=== PATIENT | female | born 1950 | race Caucasian/White ===

== ENCOUNTER 2017-12-21 10:06 | Day surgery (SDC) | payer MEDICARE ==
[~2017-12-21] VITALS: Ht 154.9 cm; Wt 64.9 kg
[~2017-12-21 10:06] MED LIST: FORFIVO XL450 MG; HYDR1TAB94 PO; LISI20; LIVALO2 MG PO; METF850 PO; Metformin HCl850 MG PO; PIOG30 PO
== END 2017-12-21 22:59 | disposition home or self-care (01) ==
LOC: ORSCMMR 10:06 → ORD 11:00 → ORSCMMR 22:59
PROVIDERS: Internal Medicine Gastroenterology
PROC: 0DBN8ZX Excision of Sigmoid Colon, Via Natural or Artificial Opening Endoscopic, Diagnostic (ICD-10-PCS; principal; 2017-12-21 11:00)
PROC: 0DBM8ZX Excision of Descending Colon, Via Natural or Artificial Opening Endoscopic, Diagnostic (ICD-10-PCS; principal; 2017-12-21 11:00)
DX: Z12.11 Encounter for screening for malignant neoplasm of colon (principal); K63.5 Polyp of colon; K64.4 Residual hemorrhoidal skin tags; E11.9 Type 2 diabetes mellitus without complications; I10 Essential (primary) hypertension; E78.00 Pure hypercholesterolemia, unspecified; Z79.84 Long term (current) use of oral hypoglycemic drugs; Z79.899 Other long term (current) drug therapy; F32.9 Major depressive disorder, single episode, unspecified; F17.210 Nicotine dependence, cigarettes, uncomplicated
CPT/HCPCS: 82947; 88305; J7120

== ENCOUNTER 2019-04-08 14:50 | Day surgery (SDC) | payer MEDICARE ==
[2019-04-11 14:56] LABS: Performing Lab SYMBIODX; Test Name TISSUE BLOCK
[2019-04-20 15:44] LABS: Result SEE PATHOTH RESULTS
== END 2019-04-08 22:45 | disposition home or self-care (01) ==
LOC: US 14:50
PROVIDERS: Physician Assistant
DX: C83.01 Small cell B-cell lymphoma, lymph nodes of head, face, and neck (principal); I10 Essential (primary) hypertension; J45.909 Unspecified asthma, uncomplicated; E11.9 Type 2 diabetes mellitus without complications; E55.9 Vitamin D deficiency, unspecified; E78.2 Mixed hyperlipidemia; F32.9 Major depressive disorder, single episode, unspecified; F17.210 Nicotine dependence, cigarettes, uncomplicated; Z90.710 Acquired absence of both cervix and uterus; Z90.721 Acquired absence of ovaries, unilateral; Z79.84 Long term (current) use of oral hypoglycemic drugs; Z79.899 Other long term (current) drug therapy; Z88.8 Allergy status to other drugs, medicaments and biological substances; Z91.030 Bee allergy status
CPT/HCPCS: 38505; 76942; 88271; 88275; 88305; 88341; 88342

== ENCOUNTER → 2020-02-08 | Outpatient (CLI) | payer MEDICARE | END | disposition home or self-care (01) | LOC: LAB EV 13:03 → LAB SHORT 13:03 | DX: L02.92 Furuncle, unspecified (principal) | CPT/HCPCS: 87070; 87075; 87077; 87147; 87186; 87205 ==

== ENCOUNTER → 2021-09-17 | Outpatient (CLI) | payer OTHER ==
[2021-09-17 17:31] LABS: Hemoglobin 8.8 g/dL (11.5-16.0); Mean Corpuscular HGB 29.9 pg (26.0-34.0); Mean Corpuscular HGB Conc 33.8 g/dL (31.5-36.5); Mean Corpuscular Volume 88 fL (80-100); Mean Platelet Volume 8.1 fL (9.1-12.4); Platelet Count 727 K/mm3 (150-400); RDW Coefficient Variation 13.7 % (11.7-14.2); RDW Standard Deviation 44.3 fL (35.1-46.3); Red Blood Cell Count 2.94 M/mm3 (3.80-5.20); White Blood Cell Count 3.06 K/mm3 (4.00-11.30)
[2021-09-17 17:40] LABS: Albumin, Blood 2.7 g/dL (3.4-5.0); Albumin/Globulin Ratio 0.6 (0.8-1.8); Bilirubin, Total 0.4 mg/dL (0.1-1.0); Calcium, Blood 9.3 mg/dL (8.5-10.1); Creatinine, Blood 1.2 mg/dL (0.40-1.00); Globulin, Blood 4.2 g/dL (2.2-4.0); Total Protein, Blood 6.9 g/dL (6.4-8.2)
[2021-09-17 18:32] LABS: BAND PERCENT MAN 6 % (0-8); BASOPHILS PERCENT MAN 0 % (0-2); EOSINOPHILS ABSOLUTE MAN 0.12 K/mm3 (0.00-0.68); EOSINOPHILS PERCENT MAN 4 % (0-6); LYMPHOCYTES ABSOLUTE MAN 0.33 K/mm3 (0.84-5.20); LYMPHOCYTES PERCENT MAN 11 % (21-46); METAMYELOCYTE ABSOLUTE MAN 0.15 K/mm3 (0.00-0.00); METAMYELOCYTE PERCENT MAN 5 % (0-0); MONOCYTES ABSOLUTE MAN 0.36 K/mm3 (0.16-1.47); MONOCYTES PERCENT MAN 12 % (4-13); NEUTROPHILS ABSOLUTE MAN 2.08 K/mm3 (1.96-9.15); SEG NEUTROPHILS PERCENT MAN 62 % (41-73); TOTAL CELLS COUNTED 100
== END | disposition home or self-care (01) ==
LOC: LAB 17:15 → LAB SHORT 17:15
PROVIDERS: Physician Assistant
DX: R11.2 Nausea with vomiting, unspecified (principal); R68.89 Other general symptoms and signs; R19.7 Diarrhea, unspecified
CPT/HCPCS: 80053; 85025

== ENCOUNTER 2021-10-12 21:14 | Inpatient (IN) | payer OTHER ==
[~2021-10-12] VITALS: Ht 162.6 cm; Wt 58.3 kg
[2021-10-12] MEDS ORDERED: EZETIMIBE10 M6 PO (21:58)
[2021-10-12] MEDS ORDERED: BUPROPION HCL200 M1 PO (21:58)
[2021-10-12] MEDS ORDERED: Hair, Skin & N1 EACH PO (22:00)
[2021-10-12] MEDS ORDERED: VITAMIN D5000 UNIT PO (22:00)
[2021-10-12 22:12] LABS: Influenza A, PCR NEGATIVE (NEGATIVE); Influenza B, PCR NEGATIVE (NEGATIVE); Resp Syncytial Virus, PCR NEGATIVE (NEGATIVE); SARS-Cov-2 (COVID-19) PCR, MMC NEGATIVE (NEGATIVE)
[2021-10-12 22:16] LABS: Hematocrit 27.7 % (33.0-51.0); Hemoglobin 9.2 g/dL (11.5-16.0); Mean Corpuscular HGB 29.8 pg (26.0-34.0); Mean Corpuscular HGB Conc 33.2 g/dL (31.5-36.5); Mean Corpuscular Volume 90 fL (80-100); Mean Platelet Volume 8.3 fL (9.1-12.4); Platelet Count 584 K/mm3 (150-400); RDW Coefficient Variation 15.4 % (11.7-14.2); RDW Standard Deviation 50.6 fL (35.1-46.3); Red Blood Cell Count 3.09 M/mm3 (3.80-5.20); White Blood Cell Count 3.36 K/mm3 (4.00-11.30)
[2021-10-12 22:39] LABS: Albumin, Blood 2.7 g/dL (3.4-5.0); Albumin/Globulin Ratio 0.7 (0.8-1.8); Bilirubin, Total 0.5 mg/dL (0.1-1.0); Bun/Creatinine Ratio 22.2 (12.0-20.0); Calcium, Blood 9.2 mg/dL (8.5-10.1); Creatinine, Blood 0.77 mg/dL (0.40-1.00); Globulin, Blood 3.8 g/dL (2.2-4.0); Potassium, Blood 4.2 mmol/L (3.5-5.5); Total Protein, Blood 6.5 g/dL (6.4-8.2)
[2021-10-12 22:54] LABS: BAND PERCENT MAN 16 % (0-8); BASOPHILS PERCENT MAN 0 % (0-2); EOSINOPHILS ABSOLUTE MAN 0.06 K/mm3 (0.00-0.68); EOSINOPHILS PERCENT MAN 2 % (0-6); LYMPHOCYTES % ATYPICAL MANUAL 2 % (0-0); LYMPHOCYTES ABSOLUTE MAN 0.26 K/mm3 (0.84-5.20); LYMPHOCYTES PERCENT MAN 6 % (21-46); METAMYELOCYTE ABSOLUTE MAN 0.06 K/mm3 (0.00-0.00); METAMYELOCYTE PERCENT MAN 2 % (0-0); MONOCYTES ABSOLUTE MAN 0.26 K/mm3 (0.16-1.47); MONOCYTES PERCENT MAN 8 % (4-13); MYELOCYTE ABSOLUTE MAN 0.03 K/mm3 (0.00-0.00); MYELOCYTE PERCENT MAN 1 % (0-0); NEUTROPHILS ABSOLUTE MAN 2.65 K/mm3 (1.96-9.15); SEG NEUTROPHILS PERCENT MAN 63 % (41-73); TOTAL CELLS COUNTED 100
--- NOTE | 2021-10-13 02:30 | NUR ---
PT HERE VIA WHEEL CHAIR FROM ER. PT AMBULATORY FROM WHEEL CHAIR TO BED. PT REPORTS PRODUCTIVE COUGH, FROTHY OCCASIONAL GREEN SPUTUM. PT REPORTS CHEST DISCOMFORT 2/10 THAT "IS TOLERABLE," SHE RELAYED HER CHEST DISCOMFORT WAS 5/10 IN ER. PT REPORTS OCCASIONAL NAUSEA. PT REPORTS SOB WITH EXERTION. SHE REPORTS SHE USUALLY WALKS 45 MINUTES A DAY, HOWEVER RECENTLY SHE HASN'T BEEN ABLE TO. LUNG SOUNDS WITH I/E WHEEZE, RHONCHI THROUGHOUT. PT DENIES ANY OTHER COMPLAINTS OF PAIN OR DISCOMFORT. CALL LIGHT WITHIN REACH. FLUIDS AT BEDSIDE. L AC IV SITE FLUSHED. DURING ASSESSMENT RT IN ROOM FOR PLACEMENT OF CONTINUOUS BIOX, SATS WNL ON RA. BED IN LOW POSITION. PT REPORTS SHE WILL CALL FOR ASSISTANCE OUT OF BED.
[2021-10-13] MEDS ORDERED: ACET500 PO (02:49)
[2021-10-13 05:54] LABS: Hematocrit 23.4 % (33.0-51.0); Mean Corpuscular HGB 30.1 pg (26.0-34.0); Mean Corpuscular HGB Conc 34.2 g/dL (31.5-36.5); Mean Corpuscular Volume 88 fL (80-100); Mean Platelet Volume 8.8 fL (9.1-12.4); Platelet Count 480 K/mm3 (150-400); RDW Coefficient Variation 15.5 % (11.7-14.2); RDW Standard Deviation 50.1 fL (35.1-46.3); Red Blood Cell Count 2.66 M/mm3 (3.80-5.20)
[2021-10-13 06:07] LABS: Albumin, Blood 2.2 g/dL (3.4-5.0); Albumin/Globulin Ratio 0.7 (0.8-1.8); Bilirubin, Total 0.4 mg/dL (0.1-1.0); Bun/Creatinine Ratio 19.5 (12.0-20.0); Calcium, Blood 8.7 mg/dL (8.5-10.1); Creatinine, Blood 0.62 mg/dL (0.40-1.00); Globulin, Blood 3.3 g/dL (2.2-4.0); Potassium, Blood 3.9 mmol/L (3.5-5.5); Total Protein, Blood 5.5 g/dL (6.4-8.2)
[2021-10-13 06:37] LABS: BAND PERCENT MAN 3 % (0-8); BASOPHILS ABSOLUTE MAN 0.02 K/mm3 (0.00-0.23); BASOPHILS PERCENT MAN 1 % (0-2); EOSINOPHILS ABSOLUTE MAN 0.11 K/mm3 (0.00-0.68); EOSINOPHILS PERCENT MAN 4 % (0-6); LYMPHOCYTES ABSOLUTE MAN 1.04 K/mm3 (0.84-5.20); LYMPHOCYTES PERCENT MAN 35 % (21-46); MONOCYTES PERCENT MAN 7 % (4-13); MYELOCYTE ABSOLUTE MAN 0.08 K/mm3 (0.00-0.00); MYELOCYTE PERCENT MAN 3 % (0-0); NEUTROPHILS ABSOLUTE MAN 1.51 K/mm3 (1.96-9.15); SEG NEUTROPHILS PERCENT MAN 48 % (41-73); TOTAL CELLS COUNTED 75
[2021-10-13 06:38] LABS: White Blood Cell Count 2.98 K/mm3 (4.00-11.30)
--- NOTE | 2021-10-13 06:42 | NUR ---
SHIFT SUMMARY - NO ACUTE CHANGES SINCE ADMIT THIS AM. PT HAS A PRODUCTIVE COUGH - PT REPORTS FROTHY, OCCASIONALLY GREEN SPUTUM. CONTINUOUS BIOX ON - SATS WITHIN NORMAL LIMITS, EXCEPT WHEN PT TALKS FOR A CONSISTENT AMOUNT OF TIME (SHE IS VERY VOCAL) - PT RECOVERS WITHIN 30 SECONDS WITH DEEP BREATHING. FLUIDS AT BEDSIDE. CALL LIGHT WITHIN REACH. BED IN LOW POSITION. PT DENIES ANY REQUESTS THIS AM. WILL CONTINUE TO MONITOR UNTIL AM SHIFT CHANGE.
--- NOTE | 2021-10-13 10:17 | NUR ---
Spiritual Care Visit - pt. request Pt. is in bed and welcomes my visit. Granddaughter is present. Pt. is pleasant, and has no real evidence of spiritual distress. Pt. is a woman of michael. Develop rapport and pray with Pt. Pt. verbalizes gratitude for the spiritual care visit.
--- NOTE | 2021-10-13 17:30 | NUR ---
DAY SHIFT SUMMARY 71 YR OLD FEMALE PT WITH PNEUMONIA, A/O X4 INDEPENDENT IN ROOM. LUNGS WITH WHEEZES THROUGHOUT. PT ON RA , ABLE TO TAKE MEDS WHOLE. CALL LIGHT WITHIN REACH AND ABLE TO CALL APPROPRIATELY. FAMILY AT BEDSIDE THROUGHOUT SHIFT.
[2021-10-14 05:05] LABS: Hematocrit 24.7 % (33.0-51.0); Mean Corpuscular HGB 29.9 pg (26.0-34.0); Mean Corpuscular HGB Conc 32.4 g/dL (31.5-36.5); Mean Corpuscular Volume 92 fL (80-100); Mean Platelet Volume 8.3 fL (9.1-12.4); Platelet Count 549 K/mm3 (150-400); RDW Coefficient Variation 15.7 % (11.7-14.2); RDW Standard Deviation 53.1 fL (35.1-46.3); Red Blood Cell Count 2.68 M/mm3 (3.80-5.20); White Blood Cell Count 2.36 K/mm3 (4.00-11.30)
--- NOTE | 2021-10-14 05:32 | NUR ---
PATIENT WITH VSS ON RA OVERNIGHT. CONTINUOUS PULSE OX IN PLACE. PATIENT UP INDEPENDENTLY IN THE ROOM. NO C/O PAIN OVERNIGHT. PATIENT SLEPT MOST OF THE SHIFT. NO ACUTE EVENTS OVERNIGHT.
[2021-10-14 05:37] LABS: BAND PERCENT MAN 13 % (0-8); BASOPHILS PERCENT MAN 0 % (0-2); EOSINOPHILS ABSOLUTE MAN 0.21 K/mm3 (0.00-0.68); EOSINOPHILS PERCENT MAN 9 % (0-6); LYMPHOCYTES ABSOLUTE MAN 0.49 K/mm3 (0.84-5.20); LYMPHOCYTES PERCENT MAN 21 % (21-46); MONOCYTES ABSOLUTE MAN 0.16 K/mm3 (0.16-1.47); MONOCYTES PERCENT MAN 7 % (4-13); MYELOCYTE ABSOLUTE MAN 0.02 K/mm3 (0.00-0.00); MYELOCYTE PERCENT MAN 1 % (0-0); NEUTROPHILS ABSOLUTE MAN 1.46 K/mm3 (1.96-9.15); SEG NEUTROPHILS PERCENT MAN 49 % (41-73); TOTAL CELLS COUNTED 100
[2021-10-14 05:42] LABS: Bun/Creatinine Ratio 13.1 (12.0-20.0); Calcium, Blood 9.3 mg/dL (8.5-10.1); Creatinine, Blood 0.61 mg/dL (0.40-1.00); Potassium, Blood 3.7 mmol/L (3.5-5.5)
--- NOTE | 2021-10-14 07:12 | NUR ---
ASSUMED CARE OF PT- BEDSIDE REPORT COMPLETED WITH NIGHT RN. PER REPORT THERE WAS DIFFICULTY STARTING THE PT IV LAST NIGHT, MULTIPLE ATTEMPTS. SHE NOW HAS AN IV IN THE LEFT WRIST, PLACED VIA ULTRASOUND. NOTABLE IRREGULAR HEART BEAT AND MURMUR ON MORNING ASSESSMENT. PT ALERT ORIENTED AND INDEPENDENT IN THE ROOM, ON ROOM AIR AND CONT BIOX. PT STATES SHE IS READY TO GO HOME TODAY, SHE FEELS MUCH BETTER THAN SHE DID, LUNG SOUNDS CLEAR ON AUSCULTATION THIS MORNING, DENIES SOB.
[2021-10-14] MEDS ORDERED: CEFD300 PO (13:38)
--- NOTE | 2021-10-14 16:03 | NUR ---
DISCHARGE NOTE- PT WAS GIVEN VERBAL ANE JOSIAH DISCHARGE INSTRUCTIONS AND ACKNOWLEDGED UNDERSTANDING OF THEM. IV DC'D PRIOR TO DISCHARGE. PT ESCORTED OUT VIA WC BY THE NEUROSCIENTIST NO S&S OF DISTRESS NOTED AT THE TIME OF DISCHARGE.
--- NOTE | 2021-10-14 17:15 | NUR ---
Prior to discharge visited Pt. Pt. was dressed and waiting for discharge papers. Granddaughter present. Re-established rapport and Prayed for Pt. Pt. and granddaughter verbalized gratitude for the spiritual cre visit.
== END 2021-10-14 14:33 | disposition home or self-care (01) | DRG 871 ==
LOC: ER 21:14 → MEDS 10-13 01:37
PROVIDERS: Family Medicine; Internal Medicine; Student in an Organized Health Care Education/Training Program; ADMIT Internal Medicine
DX: A41.9 Sepsis, unspecified organism (principal); J18.9 Pneumonia, unspecified organism; E87.1 Hypo-osmolality and hyponatremia; J45.901 Unspecified asthma with (acute) exacerbation; C85.90 Non-Hodgkin lymphoma, unspecified, unspecified site; D84.9 Immunodeficiency, unspecified; K52.1 Toxic gastroenteritis and colitis; D61.818 Other pancytopenia; Z20.822 Contact with and (suspected) exposure to COVID-19; E11.9 Type 2 diabetes mellitus without complications; T36.8X5A Adverse effect of other systemic antibiotics, initial encounter; Z87.891 Personal history of nicotine dependence; Z90.710 Acquired absence of both cervix and uterus; Z98.890 Other specified postprocedural states; Z92.21 Personal history of antineoplastic chemotherapy; Z79.84 Long term (current) use of oral hypoglycemic drugs; Z79.899 Other long term (current) drug therapy
CPT/HCPCS: 0241U; 36415; 71045; 80048; 80053; 82947; 83605; 85025; 87040; 94760; 94762; 96374; 96375; 99285-25; A9270; J0456; J0696; J1650; J7030; J7050

== ENCOUNTER 2022-01-21 13:59 | Inpatient (IN) | payer OTHER ==
[~2022-01-21] VITALS: Ht 152.4 cm; Wt 56.7 kg
[~2022-01-21 13:59] MED LIST changes: +ACET500 PO; +BUPROPION HCL200 M1 PO; +CEFD300 PO; +EZETIMIBE10 M6 PO; +Hair, Skin & N1 EACH PO; +VITAMIN D5000 UNIT PO
[2022-01-21 14:50] LABS: Hematocrit 23.1 % (33.0-51.0); Hemoglobin 7.9 g/dL (11.5-16.0); Mean Corpuscular HGB Conc 34.2 g/dL (31.5-36.5); Mean Corpuscular Volume 88 fL (80-100); Mean Platelet Volume 9.1 fL (9.1-12.4); Platelet Count 468 K/mm3 (150-400); RDW Coefficient Variation 13.2 % (11.7-14.2); Red Blood Cell Count 2.63 M/mm3 (3.80-5.20); White Blood Cell Count 3.23 K/mm3 (4.00-11.30)
[2022-01-21 15:03] LABS: Albumin, Blood 1.7 g/dL (3.4-5.0); Albumin/Globulin Ratio 0.4 (0.8-1.8); Bilirubin, Total 0.6 mg/dL (0.1-1.0); Bun/Creatinine Ratio 31.1 (12.0-20.0); Calcium, Blood 8.7 mg/dL (8.5-10.1); Creatinine, Blood 2.12 mg/dL (0.40-1.00); Globulin, Blood 3.8 g/dL (2.2-4.0); Potassium, Blood 3.6 mmol/L (3.5-5.5); Total Protein, Blood 5.5 g/dL (6.4-8.2)
[2022-01-21 15:31] LABS: Influenza A, PCR NEGATIVE (NEGATIVE); Influenza B, PCR NEGATIVE (NEGATIVE); Resp Syncytial Virus, PCR NEGATIVE (NEGATIVE); SARS-Cov-2 (COVID-19) PCR, MMC NEGATIVE (NEGATIVE)
[2022-01-21 15:31] LABS: BAND PERCENT MAN 11 % (0-8); BASOPHILS PERCENT MAN 0 % (0-2); EOSINOPHILS ABSOLUTE MAN 0.06 K/mm3 (0.00-0.68); EOSINOPHILS PERCENT MAN 2 % (0-6); LYMPHOCYTES % ATYPICAL MANUAL 1 % (0-0); LYMPHOCYTES ABSOLUTE MAN 0.35 K/mm3 (0.84-5.20); LYMPHOCYTES PERCENT MAN 10 % (21-46); METAMYELOCYTE ABSOLUTE MAN 0.03 K/mm3 (0.00-0.00); METAMYELOCYTE PERCENT MAN 1 % (0-0); MONOCYTES ABSOLUTE MAN 0.25 K/mm3 (0.16-1.47); MONOCYTES PERCENT MAN 8 % (4-13); NEUTROPHILS ABSOLUTE MAN 2.51 K/mm3 (1.96-9.15); SEG NEUTROPHILS PERCENT MAN 67 % (41-73); TOTAL CELLS COUNTED 100
[2022-01-21 18:55] LABS: Source, Urine Foley catheter
[2022-01-21 19:05] LABS: Appearance, Urine Clear (Clear); Bilirubin, Urine Neg (Neg); Blood, Urine 1+ (Neg); Color, Urine Yellow (P-Yellow); Glucose Qualitative, Urine Neg (Neg); Ketones, Urine Neg (Neg); Leukocyte Esterase, Urine Neg (Neg); Nitrite, Urine Neg (Neg); Protein, Urine 1+ (Neg); Urobilinogen, Urine NORM (Normal)
[2022-01-21 19:11] LABS: Hyaline Casts 0-2 /lpf (0-2); Red Blood Cells, Urine 0-2 /hpf (0-2); White Blood Cells, Urine 0-2 /hpf (0-5)
[2022-01-21 19:12] LABS: Bacteria Few /hpf; Squamous Epithelial Cells Not Seen /hpf (Few); Transitional Epithelial Cells Rare /hpf (0-Rare)
--- NOTE | 2022-01-21 20:35 | NUR ---
ASSUMED CARE PATIENT ARRIVED TO ICU 2 FROM ER ALERT AND RESPONDING APPROPRIATELY. PATIENT'S DAUGHTER, LINH, AT BEDSIDE. VANCO INF TO RT WRIST 22G PIV. 20G IV TO LT FOOT SALINE LOCKED. COOK PATENT AND DRAINING DARK YELLOW CLOUDY URINE TO GRAVITY. SPO2 MID 80'S ON ROOM AIR. PLACED ON 5LPM VIA NC WITH SPO2 LOW OT MID 90'S. REPORT COMPLETED WITH RAI HEWITT.
[2022-01-21] MEDS ORDERED: BENADRYL25 MG PO (21:19)
[2022-01-21] MEDS ORDERED: ALBU90OI INH (21:19)
[2022-01-21] MEDS ORDERED: IPRATROPIUM BRO30 ML (21:21)
[2022-01-21] MEDS ORDERED: ONDA4 PO (21:22)
--- NOTE | 2022-01-21 23:30 | NUR ---
BP AND OXYGEN BP SLOWLY DECREASING TO MAPS NOW IN THE 50'S. CALL MADE TO DR. BHATTI AND 500ML NS BOLUS X 1 ORDERED. OXYGEN MAINTAINING IN HIGH 90'S ON 5LPM VIA NC. OXYGEN TITRATED DOWN TO 3LPM AND SPO2 NOW AT 96%.
[2022-01-22 03:40] LABS: Hematocrit 21.3 % (33.0-51.0); Hemoglobin 7.3 g/dL (11.5-16.0); Mean Corpuscular HGB 30.5 pg (26.0-34.0); Mean Corpuscular HGB Conc 34.3 g/dL (31.5-36.5); Mean Corpuscular Volume 89 fL (80-100); Mean Platelet Volume 8.8 fL (9.1-12.4); Platelet Count 382 K/mm3 (150-400); RDW Coefficient Variation 13.2 % (11.7-14.2); RDW Standard Deviation 43.3 fL (35.1-46.3); Red Blood Cell Count 2.39 M/mm3 (3.80-5.20)
[2022-01-22 03:58] LABS: Albumin, Blood 1.9 g/dL (3.4-5.0); Albumin/Globulin Ratio 0.5 (0.8-1.8); Bilirubin, Total 0.7 mg/dL (0.1-1.0); Bun/Creatinine Ratio 39.5 (12.0-20.0); Calcium, Blood 8.5 mg/dL (8.5-10.1); Creatinine, Blood 1.52 mg/dL (0.40-1.00); Globulin, Blood 3.5 g/dL (2.2-4.0); Magnesium, Blood 1.5 mg/dL (1.6-2.4); Potassium, Blood 3.8 mmol/L (3.5-5.5); Total Protein, Blood 5.4 g/dL (6.4-8.2)
[2022-01-22 04:12] LABS: BAND PERCENT MAN 12 % (0-8); BASOPHILS PERCENT MAN 0 % (0-2); EOSINOPHILS ABSOLUTE MAN 0.02 K/mm3 (0.00-0.68); EOSINOPHILS PERCENT MAN 1 % (0-6); LYMPHOCYTES ABSOLUTE MAN 0.04 K/mm3 (0.84-5.20); LYMPHOCYTES PERCENT MAN 2 % (21-46); METAMYELOCYTE ABSOLUTE MAN 0.06 K/mm3 (0.00-0.00); METAMYELOCYTE PERCENT MAN 3 % (0-0); MONOCYTES ABSOLUTE MAN 0.16 K/mm3 (0.16-1.47); MONOCYTES PERCENT MAN 7 % (4-13); MYELOCYTE ABSOLUTE MAN 0.04 K/mm3 (0.00-0.00); MYELOCYTE PERCENT MAN 2 % (0-0); NEUTROPHILS ABSOLUTE MAN 1.95 K/mm3 (1.96-9.15); SEG NEUTROPHILS PERCENT MAN 73 % (41-73); TOTAL CELLS COUNTED 100
[2022-01-22 10:48] LABS: Vancomycin, Random 14.9 ug/mL
--- NOTE | 2022-01-22 12:03 | NUR ---
REASSESSMENT PT HAS BEEN RESTING IN BED THROUGHOUT THE MORNING. SHE WAS SLEEPING DEEPLY THIS MORNING AND DIDN'T EVEN WAKE WHEN HER BLOOD SUGAR WAS CHECKED, BUT ONCE SHE WOKE UP SHE HAS BEEN ALERT AND ORIENTED. OXYGEN TURNED DOWN TO 1L/NC THIS MORNING AND SPO2 HAS BEEN 92-84%. SR WITH FIRST DEGREE AVB. BP IMPROVED SICNE ALBUMIN CURRENTLY MAP 68. COOK DRAINING DARK YELLOW URINE. PT'S GARY WAS AT THE BEDSIDE FOR A LITTLE BIT AND WAS UPDATED. DR. BAILEY NOTIFIED OF PT'S AM BLOOD SGUAR AND ORDER RECEIVED FOR SLIDING SCALE.
--- NOTE | 2022-01-22 17:20 | NUR ---
SHIFT SUMMARY PT HAS BEEN RESTING IN BED THROUGHOUT THE DAY. SHE SPENT THE MAJORITY OF THE AFTERNOON SLEEPING. MEDICATED ONCE FOR A HEADACHE. REMAINS ALERT AND ORIENTED. LUNGS HAVE EXPIRATORY WHEEZE. OXYGEN TURNED DOWN TO 1L/NC THIS MORNING, BUT HAD TO BE TITRATED BACK UP TO 2L/NC THIS EVENING WHILE PT IS VISITING WITH HER DAUGHTER. SR, BP STABLE. URINE IN COOK BAG LIGHTENED THROUGHOUT THE SHIFT, YELLOW NOW WITH SOME SEDIMENT. CONTINUING TO MONITOR.
--- NOTE | 2022-01-22 19:00 | NUR ---
ASSUMED CARE OF PATIENT AT THIS TIME. PATIENT RESTING COMFORTABLY IN BED. ALLERGIES, LINES, AND DRIPS REVIEWED WITH PREVIOUS RN.
[2022-01-23 03:28] LABS: Hematocrit 22.1 % (33.0-51.0); Hemoglobin 7.3 g/dL (11.5-16.0); Mean Corpuscular HGB 29.3 pg (26.0-34.0); Mean Corpuscular Volume 89 fL (80-100); Mean Platelet Volume 9.6 fL (9.1-12.4); Platelet Count 352 K/mm3 (150-400); RDW Coefficient Variation 13.5 % (11.7-14.2); RDW Standard Deviation 44.1 fL (35.1-46.3); Red Blood Cell Count 2.49 M/mm3 (3.80-5.20); White Blood Cell Count 3.62 K/mm3 (4.00-11.30)
[2022-01-23 03:50] LABS: Alanine Aminotransfer (ALT/SGP 48 U/L (12-78); Albumin, Blood 2.1 g/dL (3.4-5.0); Albumin/Globulin Ratio 0.6 (0.8-1.8); Alk Phos 243 U/L (50-136); Anion Gap 11 mmol/L (6-16); Aspartate Aminotrans (AST/SGOT 40 U/L (12-37); Bilirubin, Total 0.6 mg/dL (0.1-1.0); Blood Urea Nitrogen 53 mg/dL (8-24); Bun/Creatinine Ratio 48.6 (12.0-20.0); CO2, Blood 18 mmol/L (21-32); Calcium, Blood 8.6 mg/dL (8.5-10.1); Chloride, Blood 97 mmol/L (98-108); Creatinine, Blood 1.09 mg/dL (0.40-1.00); Globulin, Blood 3.4 g/dL (2.2-4.0); Glomerular Filtration Rate 54 (60-); Glucose, Blood 257 mg/dL (70-99); Potassium, Blood 3.8 mmol/L (3.5-5.5); Sodium, Blood 126 mmol/L (136-145); Total Protein, Blood 5.5 g/dL (6.4-8.2); Vancomycin, Random 19.5 ug/mL
[2022-01-23 05:25] LABS: BAND PERCENT MAN 15 % (0-8); BASOPHILS PERCENT MAN 0 % (0-2); EOSINOPHILS PERCENT MAN 0 % (0-6); LYMPHOCYTES ABSOLUTE MAN 0.18 K/mm3 (0.84-5.20); LYMPHOCYTES PERCENT MAN 5 % (21-46); METAMYELOCYTE ABSOLUTE MAN 0.07 K/mm3 (0.00-0.00); METAMYELOCYTE PERCENT MAN 2 % (0-0); MONOCYTES ABSOLUTE MAN 0.14 K/mm3 (0.16-1.47); MONOCYTES PERCENT MAN 4 % (4-13); NEUTROPHILS ABSOLUTE MAN 3.22 K/mm3 (1.96-9.15); SEG NEUTROPHILS PERCENT MAN 74 % (41-73); TOTAL CELLS COUNTED 100
--- NOTE | 2022-01-23 05:54 | NUR ---
ASSUMED CARE OF PATIENT AT APPROX 0415. TRANSFERED PT FROM WHEELCHAIR TO BED. COOK IN PLACE DRAINING TO GRAVITY. VITAL SIGNS TAKEN. NO COMPLAINTS OF PAIN AT THIS TIME. LUNGS WHEEZY, ON 2L NC. CALL LIGHT IN REACH. SINCE ARRIVAL PT HAS BEEN RESTING COMFORTABLY. NO ACUTE CHANGES. WILL CONTINUE TO MONITOR AND REPORT TO ONCOMING RN.
--- NOTE | 2022-01-23 07:47 | NUR ---
RN NOTE RECEIVED CALL FROM LAB REGARDING BLOOD CULTURE RESULT. DR BHAT CALLED AND NOTIFIED. NO NEW ORDERS.
--- NOTE | 2022-01-23 11:27 | NUR ---
RN NOTE ACCUCHECK 363. MS HODGSON WAS EATING HER BREAKFSAT SLOWLY THROUGHOUT THE MORNING. ACCUCHECK THIS AM WAS 267, COVERED WITH [address] BHAT CALLED AND INFORMED, COVER PER ORDERED SLIDING SCALE, NO NEW ORDERS.
--- NOTE | 2022-01-23 12:38 | NUR ---
RN NOTE MS HODGSON IS ALERT AND ORIENTATED X4. SHE SAID SHE HAS FELT "BRAIN FOG" AND FORGETS THINGS SINCE CHEMO. SHE C/O GENERAL MUSCLE PAINS AND BONE ACHES, BACK DISCOMFORT, NECK, ANKLE HEAD DISCOMFORT. COOK REMOVED AT APPROX 11AM. SHE DID C/O SOME NAUSEA AND DIZZYNESS WHEN SHE STOOD UP AFTER HAVING COOK REOMOVED. ON TELEMETRY, SR, 1 DEGREE AVB. 2L NC O2, NO C/O SOB. ON RA AT BASELINE. OOB TO CHAIR WITH PT THIS AM. SHE HAS PIV IN HER LEFT ANKLE THAT HAS STARTED TO BOTHER HER, WILL PLAN TO REPLACE IT WITH BETTER PIV IF POSSIBLE. ACCUCHECKS HIGH, SEE PRIOR NOTE. LEIDY VISITING WITH HER.
--- NOTE | 2022-01-23 14:35 | NUR ---
RN NOTE PT HAS STRONG COUGH, NOT EXPECTORATING, BUT IT IS PERSISTANT AND BOTHERSOME. SHE SAID SHE TAKES A NASAL SPRAY TO HELP AT HOME. CONFIRMED WITH HER GRAND DAUGHTER SOURAV THAT SHE TAKES IPRATROPRIUM BROMIDE 21 MCG NASAL SPRAY TO HELP WITH COUGH. DR PURDY CALLED AND ORDER PLACED IN [facility] PER .
--- NOTE | 2022-01-23 17:26 | NUR ---
SHIFT SUMMARY MS HODGSON IS ALERT AND ORIENTATED, FORGETFUL AT TIMES WHICH SHE SAID IS HER BASELINE SINCE CHEMO. STRONG COUGH HAS SLIGHTLY IMPROVED SINCE TAKING NASAL SPRAY. HAS NOT VOIDED YET SINCE COOK REMOVED AT 1100HRS. BLOOD SUGARS HIGH TODAY, STARTED ON GLARGINE AFTER LUNCH. NEW PIV PLACED AND ALBUMEN IV GIVEN. ANKLE PIV REMOVED. SPUTUM CULTURE REQUESTED. NO CALLS FROM EXERCISE INSTRUCTOR. C/O GENERALISED MUSCLE ACHES AND BONE ACHES THAT SHE SAID HAS BEEN THERE SINCE SHE HAS BEEN ON CHEMO. C/O DIZZYNESS TODAY, BUT ON FURTHER QUESTIONING SHE SAID SHE HAS BEEN DIZZY FOR A LONG TIME AND HAS TINITUS. BED LOW, CALL LIGHT IN REACH.
--- NOTE | 2022-01-24 01:22 | NUR ---
CALL TO THE HOSPITALIST COVERING MACHINE TENDER CALLED AT 0054 TO REPORT PT HAS TWO EPISODES OF BIGEMINY; PT GOING BETWEEN NORMAL SINUS AND BIGEMENY. THE PT IS PRESENTING CONFUSED; SLURRED SPEECH AND RAMBLING SENTENCES. LAST SODIUM LEVEL 126; MAG 1.6. PT DENIED CHEST PAIN OR SYMPTOMS RELATED TELE EVENT. CALLED DR. ONEILL, NO NEW ORDERS DUE TO PT BEING ASYMPTOMATIC.
--- NOTE | 2022-01-24 03:24 | NUR ---
FIRE BATTALION CHIEF SUMMARY PT IS ABLE TO ANSWER ORIENTATION QUESTIONS BUT SPEECH IS INAPPROPRIATE AT TIMES; RAMBLING SPEECH AND CONTRATDICTORY STATEMENTS. PT WAS ON 2L O2 NC AT SHIFT CHANGE BUT WAS NOT WEARING WHILE EATING; TOOK PT TO BATHROOM AND O2 SATS WERE ABOVE 95%. SATS REMAINED IN THE 90'S T/O THE NIGHT WITHOUT O2 THERAPY. PT HAS A PERSISTANT HARSH COUGH BUT SHE IS PRODUCING SCANT MUCOUS. SPUTUM CULTURE IS ORDERED BUT SPECIMEN IS NOT YET COLLECTED. PT WILL FORGET TO PUT SPUTUM IN THE CUP; SHE WILL SWALLOW OR SPIT INTO TISSUE. ON TELE; REPORT F/DEAN OF WOMEN OF TWO EPISODES OF BIGEMENY; CONTACTED HOSPITALIST--NO NEW ORDERS; SEE NURSE NOTE. PT HAS VOIDED SINCE COOK D/C. PT IS 1PA W/FWW. SHE IS WEAK AND COMPLAINS OF DIZZINESS. PT REPORTS SHE IS LACTOSE INTOLERANT. IV IS INSUSING NS 100MLS/HR. PT WAS AWAKE UNTIL 3AM AND PRESENTED DISORIENTED. SHE TRIED TO GET OUT OF BED BUT COULD NOT SAY WHY. HER SPEECH WAS OFF AND ON MAKING SENSE. HELPED HER BACK TO BED. PT REQUESTED THAT ALL FOUR BED RAILS BE UP DUE TO FEAR OF FALLING OUT OF BED. CALL LIGHT IN REACH. ALARM ON. PT LEIDY WAS AT BEDSIDE AT THE BEGINNING OF SHIFT; SHE REPORTED THAT PT IS FUCTIONING WAY BELOW BASELINE. SHE STATES PT IS WEAKER AND MORE DISORIENTED. AT BASELINE PT WALKS TWO MILES A DAY AND PROVIDES DAY CARE FOR SPECIAL NEEDS GREAT-GRANDCHILD.
[2022-01-24 05:47] LABS: Bun/Creatinine Ratio 58.3 (12.0-20.0); Calcium, Blood 9.2 mg/dL (8.5-10.1); Creatinine, Blood 0.94 mg/dL (0.40-1.00); Potassium, Blood 3.5 mmol/L (3.5-5.5)
--- NOTE | 2022-01-24 14:10 | NUR ---
Upon receiving a referral for spiritual care, I visit pt. Pt is sitting on the EOB and alert. Pt has dtr, Mel, and Gdtr, Lavern campos. As pt talks, the family motion to me that pt is very confused at the moment and not acting like herself. She tells odd stories about her dog and includes her great granddtr (who is 8 y/o) with her friends that she has that are on or have been "on oxygen." She tells me that she has thousands of spiritual beliefs but can't articulate one them. She is very approving of a "Chrisitan prayer." I gladly provide prayer as well as explore support and presybeterian systems, listen emptahically and normalize pt's feelings. Pt responds well and shows signs of greated peace. I will continue to remain available to pt and family.
--- NOTE | 2022-01-24 18:12 | NUR ---
SHIFT SUMMARY: PT A&O X3, PLEASANT, NEEDS REDIRECTING AND REORIENTATING TO SITUATION AT TIMES. PT HAS BEEN RESTING IN BED MOST OF THE SHIFT. PT GIVEN CIPRO PO WITH A KNOWN ALLERGY, GIVEN BENEDRYL AND SOLU-MEDROL BEFORE DOSE OF CIPRO. PT HAD MILD ICTHING, NO ADVERSE REACTION OR SYMPTOMS, STABLE O2 96%. PT UNABLE TO PRODUCE SPUTUM FOR CULTURE. PT TRANSFER TO THE BATHROOM UNASSISTED, TELE AND IV REMOVED BY PT. PT WAS SAFELY BROUGHT BACK TO BED. NO IV ACCESS FOR PT AT THIS TIME. PT TAKES MEDICATIONS WHOLE WITH NO DIFFICULTY. PT RESTING IN BED WITH CALL LIGHT WITHIN REACH AND BED ALARM SET.
--- NOTE | 2022-01-24 18:35 | NUR ---
THIS CENA HAS REVIEWED ALL ASSESSMENTS AND NOTES BY RAI THURSTON AND AGREES WITH THEM.
--- NOTE | 2022-01-25 05:16 | NUR ---
SHIFT SUMMARY PATIENT DENIES PAIN, NAUSEA, AND SHORTNESS OF BREATH. PATIENT IS A SBA TO THE BATHROOM. PATIENT IS ON 2L VIA N/C, MAINTAINING SATS ABOVE 90%. PATIENT HAS BEEN A&O X3 ENTIRE SHIFT, CALLING APPROPRIATELY, KEEPING O2 ON. PATIENT HAS PRODUCTIVE COUGH, BUT UNABLE TO GET SPUTUM SAMPLE, PATIENT WOULD FORGET TO PUT IT IN CUP. OFFERED MEDICATION FOR COUGH, MERCEDEZTENT DECLINED. OFFERED HOT TEA, SHE ACCEPTED. PATIENT IS PLEASANT AND COOPERATIVE WITH CARE.
[2022-01-25 07:13] LABS: Bun/Creatinine Ratio 45.8 (12.0-20.0); Calcium, Blood 9.2 mg/dL (8.5-10.1); Creatinine, Blood 0.96 mg/dL (0.40-1.00); Potassium, Blood 3.5 mmol/L (3.5-5.5)
--- NOTE | 2022-01-25 18:21 | NUR ---
ADMISSION NOTE: PT ARRIVED FROM ED VIA WHEELCHAIR. PT TRANSFERED INTO BED INDEPENDANTLY. PT A&O X4, ABLE TO GIVE HISTORY AND MEDICATIONS TAKEN AT HOME. PT ADMITTED FOR ACUTE A-FIB. PT HAS COMPLIANTS OF CHEST PRESSURE AND HEADACHE. PT RECEVIED ZITA MCALLISTER IN THE ED. PT VITALS STABLE WITH A HR 117. TELE PLACED ON PT A-FIB/99. PT ORIENTATED TO THE ROOM, CALL LIGHT, COMMUNICATION BOARD AND RAPID RESPONSE PROTOCOL. PT IN BED WITH CALL LIGHT WITHIN REACH.
--- NOTE | 2022-01-25 19:10 | NUR ---
SHIFT SUMMARY: PT A&O X4 AND PLEASANT. PT HAS HAD NO COMPLAINTS OF PAIN OR DISCOMFORT. PT CALL APPROPRIATELY. PT RECEVIED ANTIBIOTICS WITH NO ADVERSE REACTIONS OR SYMPTOMS. PT HAS HAD FAMILY AY BEDSIDE THROUGHOUT SHIFT FOR SUPPORT. PT RECEVIED A SHOWER AND NEEDED SBA WITH ADL'S. PT IN RECLINER WITH CALL LIGHT WITHIN REACH.
--- NOTE | 2022-01-25 19:17 | NUR ---
SHIFT SUMMARY: PT A&O X4 AND PLEASANT. PT HAS NO COMPLAINTS OF PAIN OR DISCOMFORT. PT CALLS APPROPRIATELY. PT RECEVIED ANTIBIOTICS WITH NO ADVERSE REACTIONS OR SYMPTOMS. PT HAS HAD FAMILY AT BEDSIDE THROUGHOUT SHIFT FOR SUPPORT. PT RECEVIED A SHOWER AND REQUIRES SBA ASSIST WITH ADL'S. PT IN RECLINER WITH CALL LIGHT WITHIN REACH.
--- NOTE | 2022-01-25 19:22 | NUR ---
THIS TRAP PULLER HAS REVEIWED AND AGREES WITH ALL RAI THURSTON'S NOTES AND ASSESSMENTS.
--- NOTE | 2022-01-26 05:36 | NUR ---
SHIFT SUMMARY PATIENT DENIES PAIN, NAUSEA, AND SHORTNESS OF BREATH. PATIENT IS A SBA TO THE BATHROOM. PATIENT IS ON 2L VIA N/C. MAINTAINING SATS ABOVE 90%. PATIENT SLEPT MOST OF SHIFT. PATIENT HAS WET SOUNDING COUGH, OFFERED PRN MEDICATION, PATIENT DECLINED. PATIENT IS EAGER TO GO HOME. PATIENT IS PLEASANT AND COOPERATIVE WITH CARE.
[2022-01-26 09:34] LABS: Bun/Creatinine Ratio 35.2 (12.0-20.0); Calcium, Blood 8.9 mg/dL (8.5-10.1); Creatinine, Blood 0.65 mg/dL (0.40-1.00)
[2022-01-26] MEDS ORDERED: CIPR750 PO (12:11)
--- NOTE | 2022-01-26 13:00 | NUR ---
DISCHARGE INSTRUCTIONS COMPLETED AND DISCUSSED WITH PT EXPRESSING UNDERSTANDING. SCRIPTS FAXED TO [facility]. GRANDDAUGHTER HERE TO PICK PT UP. O2 REMOVED APPROX 1100 AND KEPT ON CONTINUOUS PULSE OX WITH SATS MAINTAINING IN LOW 90'S. AMBULATED WITH P.T. IN HALLWAY AND MONITERING PULSE WITH DROP TO 88% ON RA PER MYRTLE ENGINEERING INSPECTION ASSISTANT BUT WOULD RETURN TO 90'S WITH A DEEP BREATH. NO INCREASE IN RESP DISTRESS. TO CURB VIA W/C.
== END 2022-01-26 12:37 | disposition home or self-care (01) | DRG 872 ==
LOC: ER 13:59 → ICUW 18:05 → ICUE 20:35 → MEDS 01-23 04:20
PROVIDERS: Emergency Medicine; ADMIT Internal Medicine
DX: A41.52 Sepsis due to Pseudomonas (principal); E87.1 Hypo-osmolality and hyponatremia; C85.90 Non-Hodgkin lymphoma, unspecified, unspecified site; N17.9 Acute kidney failure, unspecified; I24.8 Other forms of acute ischemic heart disease; N39.0 Urinary tract infection, site not specified; Z20.822 Contact with and (suspected) exposure to COVID-19; I12.9 Hypertensive chronic kidney disease with stage 1 through stage 4 chronic kidney disease, or unspecified chronic kidney disease; I25.10 Atherosclerotic heart disease of native coronary artery without angina pectoris; N18.30 Chronic kidney disease, stage 3 unspecified; E11.22 Type 2 diabetes mellitus with diabetic chronic kidney disease; K52.9 Noninfective gastroenteritis and colitis, unspecified; D63.1 Anemia in chronic kidney disease; E55.9 Vitamin D deficiency, unspecified; F41.9 Anxiety disorder, unspecified; F32.A Depression, unspecified; B95.5 Unspecified streptococcus as the cause of diseases classified elsewhere; J44.9 Chronic obstructive pulmonary disease, unspecified; Z87.891 Personal history of nicotine dependence; Z90.710 Acquired absence of both cervix and uterus; Z98.1 Arthrodesis status; Z79.84 Long term (current) use of oral hypoglycemic drugs; Z79.899 Other long term (current) drug therapy
CPT/HCPCS: 0241U; 36415; 51702; 71045; 71260; 80048; 80053; 80202; 81001; 82947; 83735; 83930; 83935; 84300; 84443; 84484; 84550; 85025; 87040; 87070; 87077; 87086; 87186; 87205; 93005; 93010; 94640; 94664; 94760; 96374-59; 96375-59; 97110; 97116; 97161; 97166; 97530; 97535; 99285-25; A9270; J0696; J1200; J1650; J1815; J2920; J3370; J3475; J7030; J7040; J7050; P9047; Q9967

== ENCOUNTER → 2022-02-01 | Outpatient (CLI) | payer OTHER ==
[~2022-02-01] MED LIST changes: +ALBU90OI INH; +BENADRYL25 MG PO; +CIPR750 PO; +IPRATROPIUM BRO30 ML; +ONDA4 PO
[2022-02-01 12:03] LABS: Hematocrit 25.9 % (33.0-51.0); Hemoglobin 8.2 g/dL (11.5-16.0); Mean Corpuscular HGB 30.5 pg (26.0-34.0); Mean Corpuscular HGB Conc 31.7 g/dL (31.5-36.5); Mean Corpuscular Volume 96 fL (80-100); Mean Platelet Volume 9.8 fL (9.1-12.4); Platelet Count 443 K/mm3 (150-400); RDW Coefficient Variation 16.3 % (11.7-14.2); RDW Standard Deviation 53.9 fL (35.1-46.3); Red Blood Cell Count 2.69 M/mm3 (3.80-5.20); White Blood Cell Count 5.53 K/mm3 (4.00-11.30)
[2022-02-01 12:07] LABS: Bun/Creatinine Ratio 15.6 (12.0-20.0); Calcium, Blood 9.8 mg/dL (8.5-10.1); Creatinine, Blood 0.77 mg/dL (0.40-1.00); Potassium, Blood 3.9 mmol/L (3.5-5.5)
[2022-02-01 13:20] LABS: BAND PERCENT MAN 1 % (0-8); BASOPHILS ABSOLUTE MAN 0.11 K/mm3 (0.00-0.23); BASOPHILS PERCENT MAN 2 % (0-2); EOSINOPHILS ABSOLUTE MAN 0.11 K/mm3 (0.00-0.68); EOSINOPHILS PERCENT MAN 2 % (0-6); LYMPHOCYTES ABSOLUTE MAN 0.82 K/mm3 (0.84-5.20); LYMPHOCYTES PERCENT MAN 15 % (21-46); MONOCYTES ABSOLUTE MAN 0.33 K/mm3 (0.16-1.47); MONOCYTES PERCENT MAN 6 % (4-13); MYELOCYTE ABSOLUTE MAN 0.05 K/mm3 (0.00-0.00); MYELOCYTE PERCENT MAN 1 % (0-0); NEUTROPHILS ABSOLUTE MAN 4.09 K/mm3 (1.96-9.15); SEG NEUTROPHILS PERCENT MAN 73 % (41-73)
== END | disposition home or self-care (01) ==
LOC: LAB SHORT 11:59 → LAB 11:59
PROVIDERS: Physician Assistant
DX: I10 Essential (primary) hypertension (principal); D64.9 Anemia, unspecified
CPT/HCPCS: 80048; 85025

== ENCOUNTER → 2022-04-11 | Outpatient (CLI) | payer OTHER ==
[2022-04-11 11:03] LABS: BASOPHILS ABSOLUTE AUTO 0.04 K/mm3 (0.00-0.23); BASOPHILS PERCENT AUTO 0 % (0-2); EOSINOPHILS ABSOLUTE AUTO 0.06 K/mm3 (0.00-0.68); EOSINOPHILS PERCENT AUTO 1 % (0-6); Hematocrit 30.5 % (33.0-51.0); Hemoglobin 9.8 g/dL (11.5-16.0); IMMATURE GRAN ABSOLUTE AUTO 0.06 K/mm3 (0.00-0.10); IMMATURE GRAN PERCENT AUTO 1 % (0-1); LYMPHOCYTES ABSOLUTE AUTO 0.81 K/mm3 (0.84-5.20); LYMPHOCYTES PERCENT AUTO 7 % (21-46); MONOCYTES PERCENT AUTO 8 % (4-13); Mean Corpuscular HGB 31.9 pg (26.0-34.0); Mean Corpuscular HGB Conc 32.1 g/dL (31.5-36.5); Mean Corpuscular Volume 99 fL (80-100); Mean Platelet Volume 9.6 fL (9.1-12.4); NEUTROPHILS ABSOLUTE AUTO 9.51 K/mm3 (1.96-9.15); NEUTROPHILS PERCENT AUTO 84 % (41-73); NRBC ABSOLUTE 0.04 K/mm3 (0.00-0.02); NRBC Auto 0.4 /100 WBC (0.0-0.2); Platelet Count 374 K/mm3 (150-400); RDW Coefficient Variation 20.9 % (11.7-14.2); RDW Standard Deviation 75.4 fL (35.1-46.3); Red Blood Cell Count 3.07 M/mm3 (3.80-5.20); White Blood Cell Count 11.38 K/mm3 (4.00-11.30)
[2022-04-11 11:19] LABS: Albumin, Blood 3.2 g/dL (3.4-5.0); Bilirubin, Total 0.7 mg/dL (0.1-1.0); Creatinine, Blood 1.04 mg/dL (0.40-1.00); Globulin, Blood 3.1 g/dL (2.2-4.0); Potassium, Blood 5.4 mmol/L (3.5-5.5); Total Protein, Blood 6.3 g/dL (6.4-8.2)
== END | disposition home or self-care (01) ==
LOC: LAB SHORT 10:59 → LAB 10:59
PROVIDERS: Physician Assistant
DX: R11.2 Nausea with vomiting, unspecified (principal)
CPT/HCPCS: 80053; 82150; 83690; 85025

== ENCOUNTER 2022-04-20 14:51 | Inpatient (IN) | payer OTHER ==
[~2022-04-20] VITALS: Ht 152.4 cm; Wt 54.4 kg
[~2022-04-20 14:51] MED LIST changes: +ACET325 PO; -ACET500 PO
[2022-04-20] MEDS ORDERED: FUROSEMIDE40 MG PO (19:23)
[2022-04-20] MEDS ORDERED: CEFDINIR300 M4 PO (19:23)
[2022-04-20] MEDS ORDERED: POTCHL20ER PO (19:23)
[2022-04-20] MEDS ORDERED: MUPIROCIN15 GM (19:24)
[2022-04-21 04:17] LABS: Hematocrit 30.1 % (33.0-51.0); Hemoglobin 9.8 g/dL (11.5-16.0); Mean Corpuscular HGB 31.4 pg (26.0-34.0); Mean Corpuscular HGB Conc 32.6 g/dL (31.5-36.5); Mean Corpuscular Volume 97 fL (80-100); Mean Platelet Volume 9.7 fL (9.1-12.4); Platelet Count 272 K/mm3 (150-400); RDW Coefficient Variation 19.3 % (11.7-14.2); RDW Standard Deviation 68.5 fL (35.1-46.3); Red Blood Cell Count 3.12 M/mm3 (3.80-5.20); White Blood Cell Count 15.95 K/mm3 (4.00-11.30)
--- NOTE | 2022-04-21 05:18 | NUR ---
MAT CLEANING MACHINE OPERATOR SUMMARY PT IS ALERT AND ORIENTED COMMUNICATING [facility] W STAFF. PT HAS USED CALL LIGHT THROUGHOUT THE SHIFT TO MAKE HER NEEDS KNOWN. BP WNL AND STABLE. O2 SATS >92% ON RM AIR WHEN AWAKE HOWEVER WHEN PT IS ASLEEP ESPECIALLY FLAT SHE NEEDED 2L NC TO MAINTAIN O2 SATS >90%. PT AFBERILE. PT SLIGHTLY SOB W EXERTION BUT NO RESP DISTRESS NOTED THIS SHIFT. PT VOIDING WELL USING THE BSC. PT ABLE TO SLEEP COMFORTABLY FOR THE SECOND HALF OF THE NIGHT W CALL LIGHT WITHIN REACH. URINE SAMPLE AND SPUTUM CULTURE SENT TO LAB THIS SHIFT. WILL REPORT TO ONCOMING RN.
[2022-04-21 05:44] LABS: Albumin, Blood 2.5 g/dL (3.4-5.0); Albumin/Globulin Ratio 0.8 (0.8-1.8); Bilirubin, Total 0.8 mg/dL (0.1-1.0); Bun/Creatinine Ratio 24.1 (12.0-20.0); Calcium, Blood 8.6 mg/dL (8.5-10.1); Creatinine, Blood 0.83 mg/dL (0.40-1.00); Globulin, Blood 3.1 g/dL (2.2-4.0); Magnesium, Blood 1.7 mg/dL (1.6-2.4); Potassium, Blood 4.1 mmol/L (3.5-5.5); Thyroid Stimulating Hormone 2.3 uIU/mL (0.360-4.800); Total Protein, Blood 5.6 g/dL (6.4-8.2)
--- NOTE | 2022-04-21 12:31 | NUR ---
Pt ressting on edge of bed upon arrival. Pt is A&OX4. Granddaughter Lavern is at bedside. Pt and granddaughter report interest in completing POLST and Advanced Directive. Pt reports her healthcare proxy is granddaughter. Engaged in therapeutic conversation regarding life sustaining measures including risk factors and implications of CPR. Offered therapeutic listening and answered questions. Pt wishes are DNR. Educated on POLST form and each section to complete. Educated on AD and each section to complete. Continued supportive visit. Spoke with Primary RN Gail and discussed case. Spoke with Dr Fair and discussed case. Placed DNR order in [facility] per V/O from Dr Fair. Palliative Care will remain available.
[2022-04-21 13:52] LABS: Bun/Creatinine Ratio 21.2 (12.0-20.0); Calcium, Blood 8.7 mg/dL (8.5-10.1); Creatinine, Blood 0.8 mg/dL (0.40-1.00); Potassium, Blood 3.6 mmol/L (3.5-5.5)
[2022-04-21 15:28] LABS: Source, Urine Clean Catch
[2022-04-21 15:42] LABS: Appearance, Urine Clear (Clear); Bilirubin, Urine Neg (Neg); Blood, Urine Neg (Neg); Color, Urine Yellow (P-Yellow); Glucose Qualitative, Urine Neg (Neg); Ketones, Urine Neg (Neg); Leukocyte Esterase, Urine Neg (Neg); Nitrite, Urine Neg (Neg); Protein, Urine 1+ (Neg); Specific Gravity, Urine 1.005 (1.003-1.022); Urobilinogen, Urine NORM (Normal)
--- NOTE | 2022-04-21 17:06 | NUR ---
SHIFT SUMMARY; ASSUMED CARE AT 0700. A/A/OX3, RAMBLING SPEECH THROUGH MOST OF SHIFT WITH DIFFICULTY GETTING PATIENT TO FOCUS. FAMILY AT BEDSIDE MOST OF DAY STATES THIS IS MUCH WORSE TODAY THAN NORMAL. AMBUALTED WITH SBA AND WALKER, REPOSITIONS SELF IN BED, 2L 02 VIA NC WHEN SLEEPING. VSS, 1500ML FLUID RESTRICTION, CARDIO CONSULT TODAY COMPLETED. L/S COARSE T/O, NO ACUTE MEDICAL CHANGES, WILL CONTINUE TO MONITOR AND TREAT UNTIL CHANGE OF SHIFT.
--- NOTE | 2022-04-22 04:47 | NUR ---
SHIFT SUMMARY: PT REMAINS ALERT AND ORIENTED X4, ABLE TO FOLLOW COMMANDS AND MAKE NEEDS KNOWN. BP STABLE, HR SR 90'S, AFEBRILE, SATURATIONS >96% ON 2L NC. RESPIRATIONS EVEN AND UNLABORED. PT HAVING NON PRODUCTIVE COUGH. ABLE TO AMBULATE VIA ONE PERSON ASSIST W/ WALKER TO AND FROM BATHROOM. APPROX 1100 ML OF URINARY OUTPUT THIS SHIFT, NO BM. FLUID RESTRICTION REMAINS IN PLACE AT 1500 ML. BED IN LOW, CALL LIGHT IN REACH. WILL REPORT TO ONCOMING RN.
[2022-04-22 04:57] LABS: BASOPHILS ABSOLUTE AUTO 0.01 K/mm3 (0.00-0.23); BASOPHILS PERCENT AUTO 0 % (0-2); EOSINOPHILS PERCENT AUTO 1 % (0-6); Hematocrit 29.8 % (33.0-51.0); Hemoglobin 9.8 g/dL (11.5-16.0); IMMATURE GRAN ABSOLUTE AUTO 0.08 K/mm3 (0.00-0.10); IMMATURE GRAN PERCENT AUTO 1 % (0-1); LYMPHOCYTES ABSOLUTE AUTO 0.73 K/mm3 (0.84-5.20); LYMPHOCYTES PERCENT AUTO 7 % (21-46); MONOCYTES ABSOLUTE AUTO 0.85 K/mm3 (0.16-1.47); MONOCYTES PERCENT AUTO 8 % (4-13); Mean Corpuscular HGB 31.4 pg (26.0-34.0); Mean Corpuscular HGB Conc 32.9 g/dL (31.5-36.5); Mean Corpuscular Volume 96 fL (80-100); Mean Platelet Volume 10.1 fL (9.1-12.4); NEUTROPHILS ABSOLUTE AUTO 8.64 K/mm3 (1.96-9.15); NEUTROPHILS PERCENT AUTO 83 % (41-73); Platelet Count 269 K/mm3 (150-400); RDW Coefficient Variation 19.2 % (11.7-14.2); RDW Standard Deviation 67.9 fL (35.1-46.3); Red Blood Cell Count 3.12 M/mm3 (3.80-5.20); White Blood Cell Count 10.41 K/mm3 (4.00-11.30)
[2022-04-22 05:24] LABS: Albumin, Blood 2.4 g/dL (3.4-5.0); Albumin/Globulin Ratio 0.8 (0.8-1.8); Bilirubin, Total 0.8 mg/dL (0.1-1.0); Bun/Creatinine Ratio 16.7 (12.0-20.0); Calcium, Blood 8.8 mg/dL (8.5-10.1); Creatinine, Blood 0.96 mg/dL (0.40-1.00); Globulin, Blood 3.1 g/dL (2.2-4.0); Potassium, Blood 3.4 mmol/L (3.5-5.5); Total Protein, Blood 5.5 g/dL (6.4-8.2)
--- NOTE | 2022-04-22 07:35 | NUR ---
ASSUMED CARE: PT AWAKE, SITTING ON EDGE OF THE BED. NSR ON TELE. 2L O2 VIA NC. JASPAL HOSE TO BILATERAL LEGS WITH EDEMA NOTED. ALERT AND ORIENTED, TALKING TO STAFF. NO ACUTE NEEDS AT THIS TIME.
--- NOTE | 2022-04-22 10:25 | NUR ---
Brief supportive visit this AM. Pt resting in bed with her eyes closed. Pt's granddaughter Lavern at bedside. Rn Allergy has seen Pt and will start Pt on a couple of new medications. POLST complete hanging on Pt's white board for hospitalist to sign. Granddaughter reports plan to finish AD today with Pt. No new concerns reported at this time. Will obtain copy of POLST upon physician signature and send to medical records.
--- NOTE | 2022-04-22 18:24 | NUR ---
SHIFT SUMMARY: PT'S BPS HAVE BEEN SOFT THIS SHIFT. DR SILVA AWARE OF THIS AND OK WITH PT ONLY RECIEVING LASIX TODAY. STATES THAT HE PLANS TO CONTINUE DIURESING, LIKELY OVER NEXT FEW DAYS. FAMILY AT BEDSIDE. ON RA AT THIS TIME. NO ACUTE NEEDS OR CONCERNS.
[2022-04-23 04:38] LABS: BASOPHILS ABSOLUTE AUTO 0.04 K/mm3 (0.00-0.23); BASOPHILS PERCENT AUTO 1 % (0-2); EOSINOPHILS ABSOLUTE AUTO 0.18 K/mm3 (0.00-0.68); EOSINOPHILS PERCENT AUTO 3 % (0-6); Hematocrit 30.6 % (33.0-51.0); Hemoglobin 9.8 g/dL (11.5-16.0); IMMATURE GRAN ABSOLUTE AUTO 0.06 K/mm3 (0.00-0.10); IMMATURE GRAN PERCENT AUTO 1 % (0-1); LYMPHOCYTES PERCENT AUTO 11 % (21-46); MONOCYTES PERCENT AUTO 10 % (4-13); Mean Corpuscular Volume 97 fL (80-100); Mean Platelet Volume 9.8 fL (9.1-12.4); NEUTROPHILS ABSOLUTE AUTO 5.51 K/mm3 (1.96-9.15); NEUTROPHILS PERCENT AUTO 76 % (41-73); Platelet Count 283 K/mm3 (150-400); RDW Coefficient Variation 19.1 % (11.7-14.2); RDW Standard Deviation 69.7 fL (35.1-46.3); Red Blood Cell Count 3.16 M/mm3 (3.80-5.20); White Blood Cell Count 7.29 K/mm3 (4.00-11.30)
[2022-04-23 04:56] LABS: Albumin, Blood 2.4 g/dL (3.4-5.0); Albumin/Globulin Ratio 0.8 (0.8-1.8); Bilirubin, Total 0.8 mg/dL (0.1-1.0); Bun/Creatinine Ratio 19.2 (12.0-20.0); Calcium, Blood 8.9 mg/dL (8.5-10.1); Creatinine, Blood 1.04 mg/dL (0.40-1.00); Globulin, Blood 3.1 g/dL (2.2-4.0); Potassium, Blood 3.7 mmol/L (3.5-5.5); Total Protein, Blood 5.5 g/dL (6.4-8.2)
--- NOTE | 2022-04-23 07:25 | NUR ---
ASSUMED CARE: PT WALKING AROUND IN ROOM. NSR IN 70S ON TELE. 2L O2 VIA NC. NO ACUTE NEEDS OR CONCERNS AT THIS TIME.
[2022-04-23 09:45] LABS: Magnesium, Blood 1.5 mg/dL (1.6-2.4); Phosphorus, Blood 3.1 mg/dL (2.5-4.9)
--- NOTE | 2022-04-23 18:03 | NUR ---
SHIFT SUMMARY: PT HAS BEEN INDEPENDENT IN ROOM. MEDICAL WITH TELE STATUS TODAY. DR SILVA DECREASED LASIX DOSE TO ONCE DAILY AND DISCONTINUED POTASSIUM. STATED HE WILL READDRESS TOMORROW DEPENDING ON LAB RESULTS. FAMILY AT BEDSIDE T/O SHIFT. NO ACUTE NEEDS OR CONCERNS AT THIS TIME.
[2022-04-24 04:24] LABS: BASOPHILS ABSOLUTE AUTO 0.04 K/mm3 (0.00-0.23); BASOPHILS PERCENT AUTO 1 % (0-2); EOSINOPHILS ABSOLUTE AUTO 0.17 K/mm3 (0.00-0.68); EOSINOPHILS PERCENT AUTO 2 % (0-6); Hematocrit 31.1 % (33.0-51.0); Hemoglobin 9.9 g/dL (11.5-16.0); IMMATURE GRAN ABSOLUTE AUTO 0.06 K/mm3 (0.00-0.10); IMMATURE GRAN PERCENT AUTO 1 % (0-1); LYMPHOCYTES ABSOLUTE AUTO 0.99 K/mm3 (0.84-5.20); LYMPHOCYTES PERCENT AUTO 14 % (21-46); MONOCYTES ABSOLUTE AUTO 0.74 K/mm3 (0.16-1.47); MONOCYTES PERCENT AUTO 10 % (4-13); Mean Corpuscular HGB 30.9 pg (26.0-34.0); Mean Corpuscular HGB Conc 31.8 g/dL (31.5-36.5); Mean Corpuscular Volume 97 fL (80-100); Mean Platelet Volume 9.9 fL (9.1-12.4); NEUTROPHILS ABSOLUTE AUTO 5.09 K/mm3 (1.96-9.15); NEUTROPHILS PERCENT AUTO 72 % (41-73); Platelet Count 280 K/mm3 (150-400); White Blood Cell Count 7.09 K/mm3 (4.00-11.30)
--- NOTE | 2022-04-24 04:33 | NUR ---
PT INDEPENDENT IN ROOM,AWAKE ALL NIGHT, ALL NEEDS MET, VSS, NO ISSUES OVERNIGHT
[2022-04-24 04:48] LABS: Albumin, Blood 2.5 g/dL (3.4-5.0); Albumin/Globulin Ratio 0.8 (0.8-1.8); Bilirubin, Total 0.8 mg/dL (0.1-1.0); Bun/Creatinine Ratio 20.8 (12.0-20.0); Calcium, Blood 9.1 mg/dL (8.5-10.1); Creatinine, Blood 0.91 mg/dL (0.40-1.00); Globulin, Blood 3.2 g/dL (2.2-4.0); Potassium, Blood 3.9 mmol/L (3.5-5.5); Total Protein, Blood 5.7 g/dL (6.4-8.2)
--- NOTE | 2022-04-24 17:44 | NUR ---
SHIFT SUMMARY; ASSUMED CARE AT 0700. AWAKE IN ROOM, A/A/OX4, PREVIOUS RN REPORTS PT NOT SLEEPING IN POSSIBLY A COUPLE DAYS. RAMBLING SPEECH MOST OF DAY, FAMILY AT BEDSIDE. PHONE CALL TO DR. SILVA REGARDING NO SLEEP. AMBIEN ORDERED FOR TONIGHT. GRANDDAUGHTER REPORTS A SON WHO IS BIPOLAR AND STATES PT HAS HAD SIMILAR MANIC STATES THROUGHT RECENT YEARS ALTHOUGH IS MUCH WORSE WHEN ILL. VSS, AMBUALTES TO RESTROOM WITH WALKER, REPOSITIONS SELF IN BED NEEDED, 1500ML FLUID RESTRICTION FOLLOWED, WILL CONTINUE TO MONITOR AND TREAT UNTIL CHANGE OF SHIFT.
[2022-04-25 04:42] LABS: BASOPHILS ABSOLUTE AUTO 0.04 K/mm3 (0.00-0.23); BASOPHILS PERCENT AUTO 1 % (0-2); EOSINOPHILS ABSOLUTE AUTO 0.17 K/mm3 (0.00-0.68); EOSINOPHILS PERCENT AUTO 2 % (0-6); Hematocrit 33.5 % (33.0-51.0); IMMATURE GRAN ABSOLUTE AUTO 0.06 K/mm3 (0.00-0.10); IMMATURE GRAN PERCENT AUTO 1 % (0-1); LYMPHOCYTES ABSOLUTE AUTO 1.07 K/mm3 (0.84-5.20); LYMPHOCYTES PERCENT AUTO 13 % (21-46); MONOCYTES ABSOLUTE AUTO 0.78 K/mm3 (0.16-1.47); MONOCYTES PERCENT AUTO 10 % (4-13); Mean Corpuscular HGB 31.3 pg (26.0-34.0); Mean Corpuscular HGB Conc 32.8 g/dL (31.5-36.5); Mean Corpuscular Volume 95 fL (80-100); NEUTROPHILS ABSOLUTE AUTO 5.89 K/mm3 (1.96-9.15); NEUTROPHILS PERCENT AUTO 74 % (41-73); Platelet Count 273 K/mm3 (150-400); RDW Coefficient Variation 18.9 % (11.7-14.2); RDW Standard Deviation 66.9 fL (35.1-46.3); Red Blood Cell Count 3.52 M/mm3 (3.80-5.20); White Blood Cell Count 8.01 K/mm3 (4.00-11.30)
[2022-04-25 05:04] LABS: Albumin, Blood 2.4 g/dL (3.4-5.0); Albumin/Globulin Ratio 0.8 (0.8-1.8); Bilirubin, Total 0.6 mg/dL (0.1-1.0); Bun/Creatinine Ratio 19.5 (12.0-20.0); Calcium, Blood 8.7 mg/dL (8.5-10.1); Creatinine, Blood 0.92 mg/dL (0.40-1.00); Globulin, Blood 3.2 g/dL (2.2-4.0); Potassium, Blood 3.3 mmol/L (3.5-5.5); Total Protein, Blood 5.6 g/dL (6.4-8.2)
--- NOTE | 2022-04-25 06:46 | NUR ---
PT RESTED IN BED MOST OF THE NIGHT, VSS, NO OTHER ISSUES
--- NOTE | 2022-04-25 10:02 | NUR ---
AM NOTE: PATIENT ALERT AND ORIENTED X4. PERRLA. DENIES NUMBNESS/TINGLING. UP WITH SBA TO BATHROOM. ON ROOM AIR SATING ABOVE 92%. DENIES COUGH, LUNGS SOUNDING CLEAR AND SLIGHT CRACKLES IN BASES. ACHS BLOOD SUGARS. TELE SHOWING SR WITH HR 70-80'S. DENIES CHEST PAIN/PRESSURE. BP STABLE. NO SIGNS OF EDEMA. IV LASIX GIVEN PER EMAR. DENIES ABDOMINAL PAIN. UP TO BATHROOM TO VOID WITH ASSISTANCE. DENIES ABDOMINAL PAIN/NAUSEA. EATING WNL. ABX INFUSING PER EMAR. [facility] THIS AM TO VISIT WITH PATIENT, UPDATED ON PLAN OF CARE. CALL LIGHT IN REACH.
--- NOTE | 2022-04-25 17:59 | NUR ---
TRANSFER NOTE: NO ACUTE CHANGES, SEE PREVIOUS NOTE. REMAINS ON ROOM AIR, SINUS RHYTHM, VITAL SIGNS STABLE. ZOSYN INFUSING PER EMAR. UP TO BATHROOM TO VOID THROUGHOUT DAY. FLUID RESTRICTION MAINTAINED. REPORTED OFF TO MEDICAL FLOOR RN. PATIENT BROUGHT UP TO MEDICAL VIA WHEELCHAIR WITH ALL PERSONAL BELONGINGS AND CHART.
--- NOTE | 2022-04-25 18:34 | NUR ---
TRANSFER AND SHIFT SUMMARY NOTE: PT A&O X4, PLEASANT, COOPERATIVE AND INDEPENDANT. PT TRANSFERED FROM [facility] TO ROOM 311 AT 1730. PT ARRIVED VIA WC BY OLIVIA ATWOOD FROM U, PT TRANSFERED FROM TO BED INDEPENDANTLY. PT ORIENTATED TO THE ROOM AND PERSONAL ITEMS BROUGHT TO ROOM BY OLIVIA ATWOOD. PT GRAND DAUGHTERS AT BEDSIDE AFTER PT TRANSFER FROM U. PT RECVIED 870 PO AND IV FLUIDS FOR THE DAY, PT AWARE OF FLUID RESTRICTION. PT IN BED WITH CALL LIGHT WITHIN REACH.
--- NOTE | 2022-04-26 03:21 | NUR ---
CESSATION SYSTEMS OUTREACH SPECIALIST SUMMARY BP WAS LOW (92/52) AT HS, METOPROLOL HELD. OTHERWISE VSS. REMAINS ON 1500 CC/24 HR RESTRICTION. TALKATIVE. SOME PACING AT HS AND LATER, BUT AFTER IV SITE CHANGED AND MEDICATIONS (ABX) GIVEN. HAS BEEN RESTING QUIETLY WITH FEW INTERRUPTIONS SINCE. CALL LIGHT IN REACH. WILL CONTINUE TO MONITOR.
[2022-04-26 05:47] LABS: BASOPHILS ABSOLUTE AUTO 0.05 K/mm3 (0.00-0.23); BASOPHILS PERCENT AUTO 1 % (0-2); EOSINOPHILS PERCENT AUTO 3 % (0-6); Hematocrit 34.9 % (33.0-51.0); Hemoglobin 11.3 g/dL (11.5-16.0); IMMATURE GRAN ABSOLUTE AUTO 0.05 K/mm3 (0.00-0.10); IMMATURE GRAN PERCENT AUTO 1 % (0-1); LYMPHOCYTES ABSOLUTE AUTO 1.25 K/mm3 (0.84-5.20); LYMPHOCYTES PERCENT AUTO 21 % (21-46); MONOCYTES ABSOLUTE AUTO 0.68 K/mm3 (0.16-1.47); MONOCYTES PERCENT AUTO 11 % (4-13); Mean Corpuscular HGB 30.9 pg (26.0-34.0); Mean Corpuscular HGB Conc 32.4 g/dL (31.5-36.5); Mean Corpuscular Volume 95 fL (80-100); Mean Platelet Volume 9.7 fL (9.1-12.4); NEUTROPHILS PERCENT AUTO 63 % (41-73); Platelet Count 301 K/mm3 (150-400); RDW Coefficient Variation 18.6 % (11.7-14.2); RDW Standard Deviation 65.4 fL (35.1-46.3); Red Blood Cell Count 3.66 M/mm3 (3.80-5.20); White Blood Cell Count 6.03 K/mm3 (4.00-11.30)
[2022-04-26 06:34] LABS: Albumin, Blood 2.6 g/dL (3.4-5.0); Anion Gap 6 mmol/L (6-16); Blood Urea Nitrogen 27 mg/dL (8-24); Bun/Creatinine Ratio 23.7 (12.0-20.0); CO2, Blood 31 mmol/L (21-32); Calcium, Blood 8.9 mg/dL (8.5-10.1); Chloride, Blood 93 mmol/L (98-108); Creatinine, Blood 1.14 mg/dL (0.40-1.00); Glomerular Filtration Rate 51 (60-); Glucose, Blood 169 mg/dL (70-99); Magnesium, Blood 1.6 mg/dL (1.6-2.4); Phosphorus, Blood 2.9 mg/dL (2.5-4.9); Potassium, Blood 3.6 mmol/L (3.5-5.5); Sodium, Blood 130 mmol/L (136-145)
--- NOTE | 2022-04-26 19:18 | NUR ---
SHIFT SUMMARY: PT A&O X4, PLEASANT AND COOPERATIVE. PT AMBULATES IN ROOM INDEPENDANTLY. PT HAD NO S/S OF DISTRESS. PT ABX DOSE CHANGE PER DR. THAKUR ORDERS. PT IV IN THE BEGINNING OF THE SHIFT LEAKING AND DC'D. PT HAD A POWER GLIDE PLACED FOR EXTENTED ABX ADMINSTARTION. PT WILL BE DISCHARGING HOME WITH POWERGLIDE IN PLACE. PT VITAL SIGNS STABLE THROUGHOUT THE SHIFT, NO COMPLAINTS OF PAIN OR DISCOMFORT. PT FAMILY AT BEDSIDE DURING THE SHIFT. PT IN BED WITH CALL LIGHT WITHIN REACH.
--- NOTE | 2022-04-27 04:23 | NUR ---
MRI MANAGER SUMMARY VSS. UP AD SAUD IN THE ROOM. TOLERATEING MEDS WELL. NA+ 130 EARLIER. ASYMPTOMATIC. HAS BEEN RESTING QUIETLY WITH FEW INTERRUPTIONS AFTER HS. THEN WOKE UP A WHILE AGO AND REQUESTED BENADRYL FO R "ITCHING". MED GIVEN. RESTING QUIETLY NOW WITH CALL LIGHT IN REACH. WILL CONTINUE TO MONITOR
[2022-04-27 04:58] LABS: BASOPHILS ABSOLUTE AUTO 0.06 K/mm3 (0.00-0.23); BASOPHILS PERCENT AUTO 1 % (0-2); EOSINOPHILS PERCENT AUTO 3 % (0-6); Hematocrit 34.1 % (33.0-51.0); Hemoglobin 11.1 g/dL (11.5-16.0); IMMATURE GRAN ABSOLUTE AUTO 0.05 K/mm3 (0.00-0.10); IMMATURE GRAN PERCENT AUTO 1 % (0-1); LYMPHOCYTES ABSOLUTE AUTO 1.48 K/mm3 (0.84-5.20); LYMPHOCYTES PERCENT AUTO 20 % (21-46); MONOCYTES ABSOLUTE AUTO 0.72 K/mm3 (0.16-1.47); MONOCYTES PERCENT AUTO 10 % (4-13); Mean Corpuscular HGB 30.8 pg (26.0-34.0); Mean Corpuscular HGB Conc 32.6 g/dL (31.5-36.5); Mean Corpuscular Volume 95 fL (80-100); Mean Platelet Volume 9.6 fL (9.1-12.4); NEUTROPHILS ABSOLUTE AUTO 4.79 K/mm3 (1.96-9.15); NEUTROPHILS PERCENT AUTO 66 % (41-73); Platelet Count 317 K/mm3 (150-400); RDW Coefficient Variation 18.6 % (11.7-14.2); RDW Standard Deviation 64.9 fL (35.1-46.3)
[2022-04-27 05:22] LABS: Albumin, Blood 2.7 g/dL (3.4-5.0); Anion Gap 8 mmol/L (6-16); Blood Urea Nitrogen 35 mg/dL (8-24); CO2, Blood 29 mmol/L (21-32); Calcium, Blood 9.5 mg/dL (8.5-10.1); Chloride, Blood 93 mmol/L (98-108); Creatinine, Blood 1.06 mg/dL (0.40-1.00); Glomerular Filtration Rate 56 (60-); Glucose, Blood 174 mg/dL (70-99); Phosphorus, Blood 3.1 mg/dL (2.5-4.9); Sodium, Blood 130 mmol/L (136-145)
[2022-04-27] MEDS ORDERED: CEFEPIME HCL1 G1 IV (12:45)
[2022-04-27] MEDS ORDERED: MIRALAX17 GM PO (12:46)
[2022-04-27] MEDS ORDERED: METO25ER PO (12:46)
[2022-04-27] MEDS ORDERED: ALDACTONE25 MG PO (12:49)
[2022-04-27] MEDS ORDERED: LACT PO (12:49)
[2022-04-27] MEDS ORDERED: LOSA25 PO (12:51)
--- NOTE | 2022-04-27 18:32 | NUR ---
SUMMARY- PT A/O X4, INDEPENDANT IN ROOM AND STEADY ON FEET. ABX FOR PNEUMONIA. PT ON ROOM AIR, COARSE BASES, STRONG COUGH. LASIX FOR DIURESIS, NO LE EDEMA NOTED. PT TOLERATING FOOD AND FLUIES. NO BM SINCE 04/20, WILL PASS TO NOCS TO ADMIN LAXATIVE/FIBER. PLAN TO HAVE INFUSION AT [facility] 04/28 1630 AND 04/29 AM 0730, UNTIL HOME INFUSIONS SET UP MONDAY EVENING. PLAN FOR HOME INFUSION HERE AT THE HOSP IN PT'S ROOM AT 1500 TOMORROW. FAMILY AWARE.
--- NOTE | 2022-04-28 04:50 | NUR ---
SHIFT SUMMARY NOC PT A/OX4. PT INDEPENDENT IN ROOM BUT HAS OCCASIONAL EPISODES OF DIZZYNESS. PT IS CURRENTLY HEAR FOR PNA AND RECEIVING ABX TX. PT HAS INFUSION CENTER PT/FAMILY EDUCATION SCHEDULED FOR 1500ON 04/28/22 FOR HOME ABX THERAPY. PT IS SCHEDULED FOR DC ON 04/28/22 AFTER ABX INFUSION AT 1630, THEN WILL RETURN FOR AM INFUSION IN CLINIC. PT HAS NOT HAD BM SINCE 04/20/22 AND WAS GIVEN BOWEL CARE RX PER EMAR. PT HAD A BOUT OF ITCHING FROM ABX AND BENADRYL ORDER Q8H PRN WAS OBTAINED. PT IS ON TELE AT NSR WITH HR 80 BPM. PT IS CURRENTLY RESTING WITH BED RAILS UP, BED IN LOWEST POSITION, AND CALL LIGHT WITHIN REACH. WCTM.
--- NOTE | 2022-04-28 07:24 | NUR ---
ASSISTANT MANAGER TRAINEE NOTIFIED RN OF BRIEF ST ELEVATION AND RECOMMENDED EKG. PT ASSESSED AND ASYMPTOMATIC WITH NO C/O CP/DISCOMFORT, N/V OR DIZZYNESS. PROVIDER WAS NOTIFIED AND SAID THEY WOULD TAKE A LOOK AT TELE STRIP. INSTRUCTIONS ARE TO CONTINUE TO MONITOR PT. TELE NOTIFICATION @ 2113.
--- NOTE | 2022-04-28 17:19 | NUR ---
DISCHARGE SUMMARY PATIENT IS ALERT AND ORIENTED. PATIENT HAS HAD NO ACUTE EVENTS THIS SHIFT. VITAL SIGNS WERE REVIEWED. PATIENT IS BEING DISCHARGED HOME WITH DAUGHTER AND GRANDDAUGHTER. PATIENT AND FAMILY WERE EDUCATED ON DISCHARGE MEDICATIONS AND IV ABX INFUSION BY OUTPATIENT INFUSION NURSE. PATIENT DISCHARGED HOME WITH PATIENTS DAUGHTER TRANSPORTING.
== END 2022-04-28 16:00 | disposition home health service (06) | DRG 177 ==
LOC: ER 14:51 → PCU 22:22 → MEDS 04-25 17:58 → ENPENDDIS 04-27 16:33 → MEDS 04-28 16:00
PROVIDERS: Family Medicine; Internal Medicine; ADMIT Internal Medicine
DX: J15.1 Pneumonia due to Pseudomonas (principal); I50.23 Acute on chronic systolic (congestive) heart failure; E87.1 Hypo-osmolality and hyponatremia; G93.40 Encephalopathy, unspecified; C85.90 Non-Hodgkin lymphoma, unspecified, unspecified site; J44.1 Chronic obstructive pulmonary disease with (acute) exacerbation; J44.0 Chronic obstructive pulmonary disease with (acute) lower respiratory infection; I11.0 Hypertensive heart disease with heart failure; Z66 Do not resuscitate; E11.9 Type 2 diabetes mellitus without complications; F32.A Depression, unspecified; E86.1 Hypovolemia; D63.8 Anemia in other chronic diseases classified elsewhere; E55.9 Vitamin D deficiency, unspecified; F41.9 Anxiety disorder, unspecified; F17.210 Nicotine dependence, cigarettes, uncomplicated; W19.XXXA Unspecified fall, initial encounter; Z90.710 Acquired absence of both cervix and uterus; Z90.721 Acquired absence of ovaries, unilateral; Z88.8 Allergy status to other drugs, medicaments and biological substances; Z98.1 Arthrodesis status; Z91.038 Other insect allergy status; Z88.1 Allergy status to other antibiotic agents; Z88.5 Allergy status to narcotic agent; Z79.51 Long term (current) use of inhaled steroids; I25.2 Old myocardial infarction; Z79.899 Other long term (current) drug therapy; Z79.2 Long term (current) use of antibiotics; Z79.01 Long term (current) use of anticoagulants; Z79.811 Long term (current) use of aromatase inhibitors; Z91.018 Allergy to other foods
CPT/HCPCS: 36415; 80048; 80053; 80069; 82947; 83735; 83880; 83935; 84100; 84145; 84300; 84443; 85025; 85027; 87070; 87077; 87186; 87205; 93005; 93010; 94640; 94664; 94760; 94762; 96365; 97116; 97162; 99285-25; A9270; C1751; J0692; J1650; J1940; J2543; J7030

== ENCOUNTER → 2022-05-03 | Outpatient (CLI) | payer OTHER ==
[~2022-05-03] MED LIST changes: +ALDACTONE25 MG PO; +CEFDINIR300 M4 PO; +CEFEPIME HCL1 G1 IV; +FUROSEMIDE40 MG PO; +LACT PO; +LOSA25 PO; +METO25ER PO; +MIRALAX17 GM PO; +MUPIROCIN15 GM; +POTCHL20ER PO
[2022-05-03 15:55] LABS: Creatinine, Blood 0.76 mg/dL (0.40-1.00)
== END | disposition home or self-care (01) ==
LOC: LAB SHORT 13:00
PROVIDERS: Internal Medicine Cardiovascular Disease
DX: I50.20 Unspecified systolic (congestive) heart failure (principal); J12.82 Pneumonia due to coronavirus disease 2019; J44.0 Chronic obstructive pulmonary disease with (acute) lower respiratory infection
CPT/HCPCS: 82565; 84520

== ENCOUNTER → 2022-05-10 | Outpatient (CLI) | payer OTHER ==
[2022-05-10 20:02] LABS: Creatinine, Blood 0.82 mg/dL (0.40-1.00)
== END | disposition home or self-care (01) ==
LOC: LAB SHORT 12:20 → LAB 12:20
PROVIDERS: Physician Assistant
DX: J12.82 Pneumonia due to coronavirus disease 2019 (principal); J44.0 Chronic obstructive pulmonary disease with (acute) lower respiratory infection; I50.20 Unspecified systolic (congestive) heart failure
CPT/HCPCS: 82565; 84520

== ENCOUNTER → 2022-06-13 | Outpatient (CLI) | payer OTHER ==
[2022-06-13 15:39] LABS: Creatinine Urine 12.5 mg/dL (27.00-270.00); Microalbumin, Urine Quant. 21.8 mg/L (0.000-20.000); Protein, Urine Quantitative 10.9 mg/dL (0.0-11.9)
== END | disposition home or self-care (01) ==
LOC: LAB SHORT 05:15 → EDSTATUS 13:15
PROVIDERS: Internal Medicine Nephrology
DX: N18.2 Chronic kidney disease, stage 2 (mild) (principal); D63.1 Anemia in chronic kidney disease; R76.9 Abnormal immunological finding in serum, unspecified; R94.5 Abnormal results of liver function studies; G60.9 Hereditary and idiopathic neuropathy, unspecified; N25.81 Secondary hyperparathyroidism of renal origin; E55.9 Vitamin D deficiency, unspecified; E78.00 Pure hypercholesterolemia, unspecified
CPT/HCPCS: 81050; 82043; 82570; 84156; 84300

== ENCOUNTER 2022-08-02 09:01 | Day surgery (SDC) | payer OTHER ==
[~2022-08-02] VITALS: Ht 152.4 cm; Wt 57.6 kg
[~2022-08-02 09:01] MED LIST changes: +FURO20 PO
[2022-08-02] MEDS ORDERED: PROBIOTIC1 EA13 PO (09:30)
[2022-08-02] MEDS ORDERED: BUPR150ER PO (09:31)
[2022-08-02] MEDS ORDERED: CENTRUM SILVER1 EAC2 PO (09:31)
[2022-08-02] MEDS ORDERED: ENTRESTO 24 MG1 EACH PO (09:33)
--- NOTE | 2022-08-02 11:49 | NUR ---
PATIENT ARRIVED TO RECOVERY ROOM SITTING UPRIGHT IN CHAIR AND CONVERSING APPROPRIATELY. R RADIAL SITE WITH TR BAND FULLY INFLATED. SITE C/D/I, SOFT/NONTENDER. NO EVIDENCE OF HEMATOMA. VSS ON ROOM AIR.
[2022-08-02] MEDS ORDERED: Aspir 8181 MG PO (11:55)
--- NOTE | 2022-08-02 12:30 | NUR ---
PATIENT SITTING UPRIGHT IN RECLINER. R RADIAL SITE C/D/I, SOFT/NONTENDER, NO EVIDENCE OF HEMATOMA. PATIENT TOLERATING PO INTAKE WELL. VSS ON ROOM AIR.
--- NOTE | 2022-08-02 13:15 | NUR ---
4 ML OF AIR REMOVED FROM R RADIAL TR BAND. SITE C/D/I, SOFT/NONTENDER. NO EVIDENCE OF HEMATOMA. VSS ON ROOM AIR.
--- NOTE | 2022-08-02 13:50 | NUR ---
ALL AIR REMOVED FROM R RADIAL TR BAND. SITE C/D/I, SOFT/NONTENDER, NO EVIDENCE OF HEMATOMA. PATIENT DISHCARGE INSTURCTIONS AND MEDICATION REVIEWED WITH PATIENT. VSS ON ROOM AIR.
--- NOTE | 2022-08-02 14:00 | NUR ---
ALL AIR REMOVED FROM R RADIAL TR BAND. SITE C/D/I, SOFT/NONTENDER, NO EVIDENCE OF HEMATOMA. PATIENT TOLERATING PO INTAKE WELL. DISCHARGE INSTRUCTIONS AND MEDICATION REVIEWED WITH PATIENT. VSS ON ROOM AIR.
--- NOTE | 2022-08-02 14:05 | NUR ---
R RADIAL TR BAND FULLY INFLATED. SITE C/D/I, SOFT/NONTENDER, NO EVIDENCE OF HEMATOMA. VSS ON ROOM AIR.
--- NOTE | 2022-08-02 14:45 | NUR ---
PATIENT AMBULATING AND VOIDING TO THE BATHROOM WITHOUT DIFFICULTY. R RADIAL TR BAND REMOVED. CLOTH DOT IN PLACE. SITE C/D/I, SOFT/NONTENDER, NO EVIDENCE OF HEMATOMA. VSS ON ROOM AIR. PATIENT DISCHARGED AT THIS TIME. ALL PATIENT BELONGINGS AND PAPERWORK LEFT WITH PATIENT.
== END 2022-08-02 15:00 | disposition home or self-care (01) ==
LOC: MHTC 09:01
DX: I25.10 Atherosclerotic heart disease of native coronary artery without angina pectoris (principal); I13.0 Hypertensive heart and chronic kidney disease with heart failure and stage 1 through stage 4 chronic kidney disease, or unspecified chronic kidney disease; E11.22 Type 2 diabetes mellitus with diabetic chronic kidney disease; N18.9 Chronic kidney disease, unspecified; I50.9 Heart failure, unspecified; E78.2 Mixed hyperlipidemia; J81.0 Acute pulmonary edema; C85.90 Non-Hodgkin lymphoma, unspecified, unspecified site; F17.200 Nicotine dependence, unspecified, uncomplicated; Z79.899 Other long term (current) drug therapy
CPT/HCPCS: 76937; 93454; 99152; A9270; C1769; C1887; C1894; J0690; J1644; J2250; J3010; J7030; J7050; Q9967

== ENCOUNTER 2022-08-29 14:35 | Emergency (ER) | payer OTHER ==
[~2022-08-29] VITALS: Ht 152.4 cm; Wt 54.4 kg
[~2022-08-29 14:35] MED LIST changes: -DOXY100 PO; -Percocet 5-3251 EACH PO
[2022-08-29 15:17] VITALS: BP 125/55
[2022-08-29] MEDS ORDERED: DOXY100 PO (16:40)
[2022-08-29] MEDS ORDERED: Percocet 5-3251 EACH PO (16:40)
== END 2022-08-29 17:12 | disposition home or self-care (01) ==
LOC: ER 14:35
DX: J32.3 Chronic sphenoidal sinusitis (principal); B96.89 Other specified bacterial agents as the cause of diseases classified elsewhere; I25.10 Atherosclerotic heart disease of native coronary artery without angina pectoris; I12.9 Hypertensive chronic kidney disease with stage 1 through stage 4 chronic kidney disease, or unspecified chronic kidney disease; N18.30 Chronic kidney disease, stage 3 unspecified; Z79.899 Other long term (current) drug therapy; Z79.82 Long term (current) use of aspirin; Z91.030 Bee allergy status; Z88.1 Allergy status to other antibiotic agents; Z91.02 Food additives allergy status
CPT/HCPCS: 99283-25; A9270

== ENCOUNTER → 2022-08-29 | Outpatient (CLI) | payer OTHER ==
[~2022-08-29] MED LIST changes: +Aspir 8181 MG PO; +BUPR150ER PO; +CENTRUM SILVER1 EAC2 PO; +DOXY100 PO; +ENTRESTO 24 MG1 EACH PO; +PROBIOTIC1 EA13 PO; +Percocet 5-3251 EACH PO
[2022-08-29 12:02] LABS: BASOPHILS ABSOLUTE AUTO 0.05 K/mm3 (0.00-0.23); BASOPHILS PERCENT AUTO 0 % (0-2); EOSINOPHILS ABSOLUTE AUTO 0.18 K/mm3 (0.00-0.68); EOSINOPHILS PERCENT AUTO 2 % (0-6); Hematocrit 29.4 % (33.0-51.0); IMMATURE GRAN ABSOLUTE AUTO 0.07 K/mm3 (0.00-0.10); IMMATURE GRAN PERCENT AUTO 1 % (0-1); LYMPHOCYTES ABSOLUTE AUTO 1.05 K/mm3 (0.84-5.20); LYMPHOCYTES PERCENT AUTO 9 % (21-46); MONOCYTES ABSOLUTE AUTO 0.54 K/mm3 (0.16-1.47); MONOCYTES PERCENT AUTO 5 % (4-13); Mean Corpuscular Volume 88 fL (80-100); Mean Platelet Volume 7.8 fL (9.1-12.4); NEUTROPHILS ABSOLUTE AUTO 9.86 K/mm3 (1.96-9.15); NEUTROPHILS PERCENT AUTO 84 % (41-73); Platelet Count 769 K/mm3 (150-400); RDW Coefficient Variation 14.4 % (11.7-14.2); RDW Standard Deviation 45.8 fL (35.1-46.3); Red Blood Cell Count 3.33 M/mm3 (3.80-5.20); White Blood Cell Count 11.75 K/mm3 (4.00-11.30)
[2022-08-29 12:17] LABS: Albumin, Blood 2.7 g/dL (3.4-5.0); Albumin/Globulin Ratio 0.7 (0.8-1.8); Bilirubin, Total 0.2 mg/dL (0.1-1.0); Bun/Creatinine Ratio 20.4 (12.0-20.0); Creatinine, Blood 0.93 mg/dL (0.40-1.00); Potassium, Blood 4.3 mmol/L (3.5-5.5); Total Protein, Blood 6.7 g/dL (6.4-8.2)
== END | disposition home or self-care (01) ==
LOC: LAB 11:50 → LAB SHORT 11:50
PROVIDERS: Physician Assistant
DX: E86.0 Dehydration (principal)
CPT/HCPCS: 80053; 85025

== ENCOUNTER 2022-09-27 18:29 | Inpatient (IN) | payer OTHER ==
[~2022-09-27] VITALS: Ht 152.4 cm; Wt 59.0 kg
[~2022-09-27 18:29] MED LIST changes: +DOXY100 PO; +FAMO20 PO; +ONDA4ODT MM; +Percocet 5-3251 EACH PO
[2022-09-27 19:27] LABS: BASOPHILS ABSOLUTE AUTO 0.05 K/mm3 (0.00-0.23); BASOPHILS PERCENT AUTO 0 % (0-2); EOSINOPHILS ABSOLUTE AUTO 0.13 K/mm3 (0.00-0.68); EOSINOPHILS PERCENT AUTO 1 % (0-6); Hematocrit 29.1 % (33.0-51.0); Hemoglobin 9.2 g/dL (11.5-16.0); IMMATURE GRAN ABSOLUTE AUTO 0.05 K/mm3 (0.00-0.10); IMMATURE GRAN PERCENT AUTO 0 % (0-1); LYMPHOCYTES ABSOLUTE AUTO 1.52 K/mm3 (0.84-5.20); LYMPHOCYTES PERCENT AUTO 12 % (21-46); MONOCYTES ABSOLUTE AUTO 0.81 K/mm3 (0.16-1.47); MONOCYTES PERCENT AUTO 6 % (4-13); Mean Corpuscular HGB Conc 31.6 g/dL (31.5-36.5); Mean Corpuscular Volume 95 fL (80-100); Mean Platelet Volume 8.3 fL (9.1-12.4); NEUTROPHILS ABSOLUTE AUTO 10.07 K/mm3 (1.96-9.15); NEUTROPHILS PERCENT AUTO 80 % (41-73); Platelet Count 944 K/mm3 (150-400); RDW Coefficient Variation 16.9 % (11.7-14.2); RDW Standard Deviation 58.4 fL (35.1-46.3); Red Blood Cell Count 3.07 M/mm3 (3.80-5.20); White Blood Cell Count 12.63 K/mm3 (4.00-11.30)
[2022-09-27 19:44] LABS: Albumin, Blood 2.9 g/dL (3.4-5.0); Albumin/Globulin Ratio 0.7 (0.8-1.8); Bilirubin, Total 0.1 mg/dL (0.1-1.0); Bun/Creatinine Ratio 17.5 (12.0-20.0); Calcium, Blood 9.5 mg/dL (8.5-10.1); Creatinine, Blood 0.8 mg/dL (0.40-1.00); Globulin, Blood 4.2 g/dL (2.2-4.0); Potassium, Blood 4.6 mmol/L (3.5-5.5); Total Protein, Blood 7.1 g/dL (6.4-8.2)
[2022-09-28] MEDS ORDERED: EZETIMIBE10 M6 PO (00:06)
[2022-09-28 00:39] VITALS: BP 145/121
[2022-09-28] MEDS ORDERED: METF500 PO (01:04)
--- NOTE | 2022-09-28 01:04 | NUR ---
0029 PT ARRIVED TO ROOM FROM ER IN STABLE CONDITION. REPORTS HEADACHE OF 2/10. DENIES NAUSEA. HAS DRY COUGH. NEURO CHECK IS NORMAL. NO OTHER APPARENT SIGNS OF DISTRESS. REQUESTED AND RECIEVED DIET PEPSI AND A WHOLE SANDWICH. NO OTHER APPARENT SIGNS OF DISTRESS. CALL LIGHT IS IN REACH. PT WALKED AROUND THE ROOM EASILY WITH NO SIGNS OF WEAKNESS OR OF BEING UNSTEADY.
--- NOTE | 2022-09-28 02:10 | NUR ---
PT LYING IN BED, EYES ARE CLOSED, APPEARS TO BE RESTING. NO APPARENT SIGNS OF DISTRESS. CALL LIGHT IS IN REACH. TELE IS NSR AT 96.
--- NOTE | 2022-09-28 04:04 | NUR ---
PT REQUESTED AND RECIEVED PAIN MEDS AT 0311. PT IS NOW LYING IN BED, EYES CLOSED, APPEARS TO BE RESTING. BREATHING IS EVEN, UNLABORED. NO APPARENT SIGNS OF DISTRESS. CALL LIGHT IS IN REACH.
--- NOTE | 2022-09-28 04:05 | NUR ---
PT IS AAO X 4, ON RA. PT REPORTS A HEADACHE, GOT FENTANYL X 1 AND TYLENOL X 1. TELE NSR AND OCCASIONALLY ST WITH AMBULATION.
[2022-09-28 04:46] VITALS: BP 145/66
[2022-09-28 05:14] LABS: BASOPHILS ABSOLUTE AUTO 0.04 K/mm3 (0.00-0.23); BASOPHILS PERCENT AUTO 0 % (0-2); EOSINOPHILS ABSOLUTE AUTO 0.18 K/mm3 (0.00-0.68); EOSINOPHILS PERCENT AUTO 2 % (0-6); Hematocrit 27.4 % (33.0-51.0); Hemoglobin 8.6 g/dL (11.5-16.0); IMMATURE GRAN ABSOLUTE AUTO 0.03 K/mm3 (0.00-0.10); IMMATURE GRAN PERCENT AUTO 0 % (0-1); LYMPHOCYTES ABSOLUTE AUTO 1.02 K/mm3 (0.84-5.20); LYMPHOCYTES PERCENT AUTO 10 % (21-46); MONOCYTES ABSOLUTE AUTO 0.85 K/mm3 (0.16-1.47); MONOCYTES PERCENT AUTO 9 % (4-13); Mean Corpuscular HGB Conc 31.4 g/dL (31.5-36.5); Mean Corpuscular Volume 96 fL (80-100); Mean Platelet Volume 8.5 fL (9.1-12.4); NEUTROPHILS PERCENT AUTO 78 % (41-73); Platelet Count 900 K/mm3 (150-400); RDW Coefficient Variation 17.1 % (11.7-14.2); RDW Standard Deviation 59.3 fL (35.1-46.3); Red Blood Cell Count 2.87 M/mm3 (3.80-5.20); White Blood Cell Count 9.82 K/mm3 (4.00-11.30)
[2022-09-28 05:40] LABS: Albumin, Blood 2.6 g/dL (3.4-5.0); Albumin/Globulin Ratio 0.7 (0.8-1.8); Bilirubin, Total 0.3 mg/dL (0.1-1.0); Bun/Creatinine Ratio 15.5 (12.0-20.0); Calcium, Blood 8.9 mg/dL (8.5-10.1); Creatinine, Blood 0.91 mg/dL (0.40-1.00); Globulin, Blood 3.7 g/dL (2.2-4.0); Potassium, Blood 4.6 mmol/L (3.5-5.5); Total Protein, Blood 6.3 g/dL (6.4-8.2)
--- NOTE | 2022-09-28 05:58 | NUR ---
PT REQUESTED AND RECIEVED PAIN MEDS, CALLED DR, GOT TORADOL ORDERED X 1, GAVE TORADOL AND TYLENOL AND SET UP A HEATING PAD FOR THE PT. WILL EVAL FOR EFFECT. ALSO WAITING FOR THE DR TO RETURN A CALL TO ASK FOR COUGH MEDICINE. NO OTHER APPARENT SIGNS OF DISTRESS. CALL LIGHT IS IN REACH. NO OTHER CHANGES THIS SHIFT.
[2022-09-28 07:43] VITALS: BP 126/60
[2022-09-28 10:42] LABS: Source, Urine Voided
[2022-09-28 11:01] LABS: Appearance, Urine Clear (Clear); Bilirubin, Urine Neg (Neg); Blood, Urine Neg (Neg); Color, Urine Yellow (P-Yellow); Glucose Qualitative, Urine Neg (Neg); Ketones, Urine Neg (Neg); Leukocyte Esterase, Urine Neg (Neg); Nitrite, Urine Neg (Neg); Protein, Urine 1+ (Neg); Urobilinogen, Urine NORM (Normal)
--- NOTE | 2022-09-28 11:50 | NUR ---
PATIENT TO IMAGING VIA W/C FOR MRI
--- NOTE | 2022-09-28 12:48 | NUR ---
PATIENT RETURNED TO ROOM FROM IMAGING.
[2022-09-28 15:09] VITALS: BP 148/66
--- NOTE | 2022-09-28 16:27 | NUR ---
SHIFT SUMMARY NO ACUTE CHANGES THIS SHIFT. NO WEAKNESS OR FACIAL DROOPS NOTED T/O SHIFT, NO SLURRED SPEACH OR CHANGE OF MENTAL STATUS, NEURO CHECKS WNL T/O SHIFT. MRI DONE THIS SHIFT, RESULTS PENDING. PATIENT INDEPENDENT IN ROOM. EATING, DRINKING, & VOIDING W/O DIFFICULTY. PATIENT HAS REPORTED HEADACHE AND PAIN TO RIGHT SIDE OF FACE/CHEEK, MEDICATED PER EMAR W/ RELEIF FORM PAIN MEDICATION. PATIENT DID REPORT HITTING HER HEAD "PRETTY GOOD" WITHIN THE LAST COUPLE WEEKS. USES CALL LIGHT APPROPRIATELY, IN REACH. WILL REPORT TO ONCOMING RN AT 1900.
[2022-09-28 19:26] VITALS: BP 149/73
[2022-09-29 04:13] VITALS: BP 135/66
[2022-09-29 05:12] LABS: CHOL/HDL RATIO 1.6; Cholesterol 136 mg/dL (50-200); HDL Cholesterol 86 mg/dL (>39); LDL/HDL RATIO 0.3; Low Density Lipoprotein Chol 27 mg/dL (0-110); Triglycerides 114 mg/dL (30-160); Very Low Density Lipoprot Chol 22 mg/dL (6-32)
[2022-09-29 05:29] LABS: Cancer Antigen 125 34.5 U/mL (1.5-35.0); Carcinoembryonic Antigen 2.8 ng/mL (0.0-3.0)
[2022-09-29 07:29] VITALS: BP 123/60
--- NOTE | 2022-09-29 09:00 | NUR ---
pt laying in bed complaining of severe h/a, will medicate with percocet, a/ox4, cooperative [facility] care, follows commands well, reports some c.p. last night but non today, denies sob, lungs are clear t/o, on r/a, resp even and unlabored, no cough noted, hrr, tele in place running sr to st per monitor, see strip, no edema noted, ppp+1, cap refill <3 sec, vs stable, afebrile, iv site to rfa site is clear and patent, btx4, abd flat soft nontender, voids without diff, skin c/w/d, maew, anthony, call light in reach.
--- NOTE | 2022-09-29 13:02 | NUR ---
notified Dr. Bolaños of troponin of 404...
[2022-09-29 15:48] VITALS: BP 129/64
--- NOTE | 2022-09-29 18:30 | NUR ---
SHIFT SUMMARY THIS RN ASSUMED CARE AT 1600. PATIENT HAS HAD NO ACUTE EVENTS THIS SHIFT. SEE PRIOR NOTE FROM PRIMARY RN.
[2022-09-29 19:33] VITALS: BP 124/59
--- NOTE | 2022-09-30 03:56 | NUR ---
IAN BARBER, PT SEEMS MORE ALERT AND INTERACTIVE TONIGHT THAN LAST NOC. PT STILL HAS OCCASIONAL INCONT OF URINE. AND PT AND BEDDING WAS CHANGED. CALL LIGHT IN REACH BED ALARM ON.
[2022-09-30 04:58] VITALS: BP 121/68
--- NOTE | 2022-09-30 05:10 | NUR ---
SHIFT SUMMERY, PT SEEMD TO SLEEP FAIRLY WELL LAST NOC AFTER PAINMEDS GIVEN, PT AWOKE THIS AM ABOUT 0445 MOANING IN PAIN. PT MEDICTED AND NOW TRYING TO REST. PT HAVING A LOT OF PAIN TO HER HEAD. CALL LIGHT IN REACH.
[2022-09-30 07:52] VITALS: BP 119/66
--- NOTE | 2022-09-30 08:03 | NUR ---
pt sitting up on the side of the bed awake a/ox3, very talkative this am, Dr. Bolaños in to see her, will be discharging today, pt states h/a is about a 5/10, was medicated at 5am, lungs are clear t/o on r/a, has a bit of an occational harsh cough she reports occ productive, hrr, tele in place running st per monitor, see strip, no edema noted, ppp+1, cap refil < 3sec, vs stable, afebrile, iv site to hand 22g, clear and patent, btx4, abd flat soft nontender, voids without diff, skin c/w/d, maew, anthony, no facial droop, smile symetrical but states her tongue goes to the right side, is swallowing without diff, call light in reach.
--- NOTE | 2022-09-30 12:13 | NUR ---
Pt. is awake an sitting up at the edge of the bed. Pt. displays evidence of awaiting discharge. Facilitated a life review and considered matters of michael and ministry. Listen with engagement and a pastoral presence. Pt. displayed evidence of awareness, engagement, and trust. Prayed with the Pt. Pt. verbalized gratitude for the spiritual care visit.
--- NOTE | 2022-09-30 13:01 | NUR ---
Pt has been discharged to home, went over instructions with her, she verbalized understanding, iv removed intact, hard copy of percocet in her discharge envelope, she is aware, left via wheelchair with director of testing and family member in attendence. she has all her belongings.
== END 2022-09-30 13:30 | disposition home health service (06) | DRG 69 ==
LOC: ER 18:29 → MEDS 18:30 → ENPENDDIS 09-28 18:30 → MEDS 09-30 13:30
PROVIDERS: Internal Medicine; Physician Assistant; ADMIT Internal Medicine
DX: G45.9 Transient cerebral ischemic attack, unspecified (principal); C79.89 Secondary malignant neoplasm of other specified sites; C85.90 Non-Hodgkin lymphoma, unspecified, unspecified site; I13.0 Hypertensive heart and chronic kidney disease with heart failure and stage 1 through stage 4 chronic kidney disease, or unspecified chronic kidney disease; I50.22 Chronic systolic (congestive) heart failure; E87.1 Hypo-osmolality and hyponatremia; G81.94 Hemiplegia, unspecified affecting left nondominant side; C78.39 Secondary malignant neoplasm of other respiratory organs; C79.51 Secondary malignant neoplasm of bone; R47.81 Slurred speech; E11.22 Type 2 diabetes mellitus with diabetic chronic kidney disease; N18.30 Chronic kidney disease, stage 3 unspecified; R29.810 Facial weakness; R47.1 Dysarthria and anarthria; R90.0 Intracranial space-occupying lesion found on diagnostic imaging of central nervous system; D63.0 Anemia in neoplastic disease; I25.10 Atherosclerotic heart disease of native coronary artery without angina pectoris; J44.9 Chronic obstructive pulmonary disease, unspecified; E78.2 Mixed hyperlipidemia; I48.91 Unspecified atrial fibrillation; D75.839 Thrombocytosis, unspecified; E55.9 Vitamin D deficiency, unspecified; H74.8X1 Other specified disorders of right middle ear and mastoid; R77.8 Other specified abnormalities of plasma proteins; I25.2 Old myocardial infarction; Z91.038 Other insect allergy status; Z91.018 Allergy to other foods; Z90.49 Acquired absence of other specified parts of digestive tract; Z90.710 Acquired absence of both cervix and uterus; Z90.722 Acquired absence of ovaries, bilateral; Z98.1 Arthrodesis status; Z79.82 Long term (current) use of aspirin; Z88.8 Allergy status to other drugs, medicaments and biological substances; Z79.899 Other long term (current) drug therapy
CPT/HCPCS: 36415; 70450; 70553; 71046; 74177; 80053; 80061; 82378; 82947; 84484; 85025; 86304; 93005; 93010; 96372; 96374; 96375; 96376; 97110; 97116; 97162; 99285-25; A9270; A9579; C8929; G0378; J1650; J1885; J2001; J2405; J2765; J3010; J7030; Q9957; Q9967

== ENCOUNTER 2022-10-03 19:13 | Emergency (ER) | payer OTHER ==
[~2022-10-03] VITALS: Ht 162.6 cm; Wt 68.0 kg
[~2022-10-03 19:13] MED LIST changes: +METF500 PO
[2022-10-03 20:06] LABS: BASOPHILS ABSOLUTE AUTO 0.03 K/mm3 (0.00-0.23); BASOPHILS PERCENT AUTO 0 % (0-2); EOSINOPHILS ABSOLUTE AUTO 0.03 K/mm3 (0.00-0.68); EOSINOPHILS PERCENT AUTO 0 % (0-6); Hematocrit 31.5 % (33.0-51.0); Hemoglobin 10.4 g/dL (11.5-16.0); IMMATURE GRAN ABSOLUTE AUTO 0.05 K/mm3 (0.00-0.10); IMMATURE GRAN PERCENT AUTO 0 % (0-1); LYMPHOCYTES ABSOLUTE AUTO 1.81 K/mm3 (0.84-5.20); LYMPHOCYTES PERCENT AUTO 13 % (21-46); MONOCYTES ABSOLUTE AUTO 0.81 K/mm3 (0.16-1.47); MONOCYTES PERCENT AUTO 6 % (4-13); Mean Corpuscular HGB 29.9 pg (26.0-34.0); Mean Corpuscular Volume 91 fL (80-100); Mean Platelet Volume 8.1 fL (9.1-12.4); NEUTROPHILS ABSOLUTE AUTO 11.47 K/mm3 (1.96-9.15); NEUTROPHILS PERCENT AUTO 81 % (41-73); RDW Coefficient Variation 15.4 % (11.7-14.2); RDW Standard Deviation 50.7 fL (35.1-46.3); Red Blood Cell Count 3.48 M/mm3 (3.80-5.20)
[2022-10-03 20:13] LABS: Platelet Count 1031 K/mm3 (150-400)
[2022-10-03 20:22] LABS: Albumin, Blood 2.8 g/dL (3.4-5.0); Albumin/Globulin Ratio 0.6 (0.8-1.8); Bilirubin, Total 0.5 mg/dL (0.1-1.0); Bun/Creatinine Ratio 16.6 (12.0-20.0); Calcium, Blood 9.5 mg/dL (8.5-10.1); Creatinine, Blood 0.66 mg/dL (0.40-1.00); Globulin, Blood 4.4 g/dL (2.2-4.0); Total Protein, Blood 7.2 g/dL (6.4-8.2)
[2022-10-04] MEDS ORDERED: AMOCLA875 PO (00:31)
[2022-10-04] MEDS ORDERED: Percocet 5-3251 EACH PO (00:33)
[2022-10-04] MEDS ORDERED: ONDA4ODT MM (00:33)
[2022-10-04] MEDS ORDERED: PROM12.5S PR (00:33)
[2022-10-04 01:35] VITALS: BP 111/61
== END 2022-10-04 01:43 | disposition home or self-care (01) ==
LOC: ER 19:13
PROVIDERS: Student in an Organized Health Care Education/Training Program
DX: R22.0 Localized swelling, mass and lump, head (principal); E87.1 Hypo-osmolality and hyponatremia; R51.9 Headache, unspecified; R42 Dizziness and giddiness; D75.839 Thrombocytosis, unspecified; D64.9 Anemia, unspecified; D72.829 Elevated white blood cell count, unspecified; Z91.030 Bee allergy status; Z88.1 Allergy status to other antibiotic agents; Z91.048 Other nonmedicinal substance allergy status; Z79.899 Other long term (current) drug therapy; Z79.82 Long term (current) use of aspirin; Z79.84 Long term (current) use of oral hypoglycemic drugs; J45.909 Unspecified asthma, uncomplicated; I13.0 Hypertensive heart and chronic kidney disease with heart failure and stage 1 through stage 4 chronic kidney disease, or unspecified chronic kidney disease; N18.30 Chronic kidney disease, stage 3 unspecified; E78.5 Hyperlipidemia, unspecified; G43.909 Migraine, unspecified, not intractable, without status migrainosus; J44.9 Chronic obstructive pulmonary disease, unspecified; I25.10 Atherosclerotic heart disease of native coronary artery without angina pectoris; I48.91 Unspecified atrial fibrillation
CPT/HCPCS: 70450; 80053; 85025; 93005; 93010; 96361; 96374; 96375; 99284-25; A9270; J1885; J2270; J2405; J2765; J7030

== ENCOUNTER → 2022-10-20 | Outpatient (CLI) | payer OTHER ==
[~2022-10-20] MED LIST changes: +AMOCLA875 PO; +Acetaminophen650 M1 PO; +PROM12.5S PR
== END | disposition home or self-care (01) ==
LOC: LAB SHORT 08:18 → PLD 08:18 → LAB 08:18
DX: D14.0 Benign neoplasm of middle ear, nasal cavity and accessory sinuses (principal)
CPT/HCPCS: 88305

== ENCOUNTER → 2022-10-26 | Outpatient (CLI) | payer OTHER ==
[2022-10-31 10:09] LABS: M-SPIKE, % Not Observed % (Not Observed); PROTEIN,TOTAL,URINE 88.7 mg/dL (Not Estab.)
== END | disposition home or self-care (01) ==
LOC: LAB 09:00 → LAB SHORT 09:00
PROVIDERS: Internal Medicine Nephrology
DX: N18.30 Chronic kidney disease, stage 3 unspecified (principal); N25.81 Secondary hyperparathyroidism of renal origin; E55.9 Vitamin D deficiency, unspecified; E78.00 Pure hypercholesterolemia, unspecified; D51.8 Other vitamin B12 deficiency anemias; D52.8 Other folate deficiency anemias; D50.9 Iron deficiency anemia, unspecified; R76.9 Abnormal immunological finding in serum, unspecified; R94.5 Abnormal results of liver function studies; R94.6 Abnormal results of thyroid function studies
CPT/HCPCS: 84156; 84166

== ENCOUNTER 2022-11-02 22:16 | Inpatient (IN) | payer OTHER ==
[~2022-11-02] VITALS: Ht 152.4 cm; Wt 51.0 kg
[~2022-11-02 22:16] MED LIST changes: -Acetaminophen650 M1 PO
[2022-11-03 00:55] LABS: Albumin, Blood 2.6 g/dL (3.4-5.0); Albumin/Globulin Ratio 0.8 (0.8-1.8); Bilirubin, Total 0.1 mg/dL (0.1-1.0); Calcium, Blood 8.7 mg/dL (8.5-10.1); Creatinine, Blood 0.67 mg/dL (0.40-1.00); Globulin, Blood 3.2 g/dL (2.2-4.0); Potassium, Blood 2.8 mmol/L (3.5-5.5); Total Protein, Blood 5.8 g/dL (6.4-8.2)
[2022-11-03 00:57] LABS: Source, Urine Straight Cath
[2022-11-03 00:59] LABS: Bilirubin, Urine Neg (Neg); Blood, Urine Neg (Neg); Glucose Qualitative, Urine 2+ (Neg); Ketones, Urine Neg (Neg); Leukocyte Esterase, Urine Neg (Neg); Nitrite, Urine Neg (Neg); Protein, Urine 2+ (Neg); Urobilinogen, Urine NORM (Normal)
[2022-11-03 01:21] LABS: Appearance, Urine Clear (Clear); Color, Urine Yellow (P-Yellow)
[2022-11-03 01:24] LABS: Bacteria Rare /hpf; Red Blood Cells, Urine 0-2 /hpf (0-2); Squamous Epithelial Cells Rare /hpf (Few); White Blood Cells, Urine 0-2 /hpf (0-5)
[2022-11-03 03:12] LABS: BASOPHILS ABSOLUTE AUTO 0.02 K/mm3 (0.00-0.23); BASOPHILS PERCENT AUTO 0 % (0-2); EOSINOPHILS PERCENT AUTO 1 % (0-6); Hematocrit 26.9 % (33.0-51.0); Hemoglobin 8.6 g/dL (11.5-16.0); IMMATURE GRAN ABSOLUTE AUTO 0.04 K/mm3 (0.00-0.10); IMMATURE GRAN PERCENT AUTO 1 % (0-1); LYMPHOCYTES PERCENT AUTO 12 % (21-46); MONOCYTES ABSOLUTE AUTO 0.44 K/mm3 (0.16-1.47); MONOCYTES PERCENT AUTO 6 % (4-13); Mean Corpuscular HGB 29.2 pg (26.0-34.0); Mean Corpuscular Volume 91 fL (80-100); Mean Platelet Volume 8.9 fL (9.1-12.4); NEUTROPHILS PERCENT AUTO 81 % (41-73); Platelet Count 659 K/mm3 (150-400); RDW Coefficient Variation 14.4 % (11.7-14.2); RDW Standard Deviation 48.3 fL (35.1-46.3); Red Blood Cell Count 2.95 M/mm3 (3.80-5.20)
[2022-11-03 03:28] LABS: Cholesterol 143 mg/dL (50-200); HDL Cholesterol 71 mg/dL (>39); LDL/HDL RATIO 0.7; Low Density Lipoprotein Chol 47 mg/dL (0-110); Magnesium, Blood 1.4 mg/dL (1.6-2.4); Triglycerides 127 mg/dL (30-160); Very Low Density Lipoprot Chol 25 mg/dL (6-32)
[2022-11-03 03:37] LABS: Anti-Xa UFH, PHA Monitoring <0.10 IU/mL; International Normalized Ratio 1.06; Prothrombin Time Results 11.1 Sec (9.7-11.5)
[2022-11-03 03:41] VITALS: BP 122/66
--- NOTE | 2022-11-03 07:15 | NUR ---
SHIFT SUMMARY ASSUMED CARE OF PT AT 0310. PT IS A/OX4. HEART SOUNDS IRREGULAR. LUNG SOUNDS HAVE FINE CRACKLES IN THE L LOWER FEILD. PT HAS CHRONIC DRY COUGH. PT C/O HEADACHE, MEDICATED PER EMAR. PT USED BEDPAN IN BED. URINE CLEAR WITH SEDIMENT. PT USING SCUDS DUE TO NOT BEING ABLE TO USE HEPRIN. PT PAINFUL THIS MORNING. NO OTHER COMPLAINTS. PT EDUCATED ABOUT HOSPITAL SMOKING POLICY.
[2022-11-03 08:00] VITALS: BP 122/66
--- NOTE | 2022-11-03 09:08 | NUR ---
PT LEFT FOR ANGIO AT 0900 VIA HOSPITAL BED AND OCCOMPANIED BY THREE HC STAFF.
[2022-11-03 12:43] VITALS: BP 111/67
--- NOTE | 2022-11-03 12:52 | NUR ---
PT ASKED IF SHE SMOKES AT 0745, PT REPORTS BEING A "FORMER SMOKER." NO LIGHTERS OR OTHER IGNITION RISK DEVICES REPORTED. PT REMINDED THAT [facility] IS A SMOKE FREE FACILITY. PT ESPRESSED UNDERSTANDING.
[2022-11-03] MEDS ORDERED: FAMO20 PO (13:34)
[2022-11-03] MEDS ORDERED: METF500 PO ×2 (13:35)
[2022-11-03] MEDS ORDERED: METO25ER PO (13:36)
[2022-11-03] MEDS ORDERED: ENTRESTO 24 MG1 EACH PO (13:38)
[2022-11-03] MEDS ORDERED: Percocet 5-3251 EACH PO (13:39)
[2022-11-03] MEDS ORDERED: Acetaminophen650 M1 PO (13:40)
--- NOTE | 2022-11-03 16:13 | NUR ---
DISCHARGE UPDATE DISCHARGE PACKET GONE OVER WITH PT AND PT GRANDDAUGHTER AT 1600. PT GRANDDAUGHTER STATED THAT THE PT "WILL NOT BE STOPPING THOSE MEDICATIONS. HER MIXER RUNNER WILL DETERMINE IF THEY NEED TO BE STOPPED." PT GRANDDAUGHTER WAS ADAMANT ABOUT PT NOT STOPPING ANY MEDS WITH "HER MIXER RUNNER" SAYING TO STOP. HARD SCRIPT IN DISCHARGE PACKET. DISCHARGE PACKET IN BAGS ALONG WITH PERSONAL BELONGINGS AND WITH PT DURING DISCHARGE. PT LEFT VIA WHEELCHAIR AND ON RA. PT ABLE TO TRASNFER TO AND FROM WHEELCHAIR WITH MINIMAL ASSISTANCE, REPORTS "DIZZINESS ALL THE TIME." PT EDUCATED ON SAFETY WHEN FEELING DIZZY.
== END 2022-11-03 16:05 | disposition home or self-care (01) | DRG 281 ==
LOC: ER 22:16 → PCU 11-03 02:54 → UNDODEPER 11-03 07:51 → PCU 11-03 16:05
PROVIDERS: Emergency Medicine; Family Medicine; ADMIT Student in an Organized Health Care Education/Training Program
DX: I21.4 Non-ST elevation (NSTEMI) myocardial infarction (principal); C85.90 Non-Hodgkin lymphoma, unspecified, unspecified site; I13.0 Hypertensive heart and chronic kidney disease with heart failure and stage 1 through stage 4 chronic kidney disease, or unspecified chronic kidney disease; E87.1 Hypo-osmolality and hyponatremia; I47.1 Supraventricular tachycardia; I50.42 Chronic combined systolic (congestive) and diastolic (congestive) heart failure; I48.91 Unspecified atrial fibrillation; E78.5 Hyperlipidemia, unspecified; F32.A Depression, unspecified; J44.9 Chronic obstructive pulmonary disease, unspecified; G43.909 Migraine, unspecified, not intractable, without status migrainosus; N18.31 Chronic kidney disease, stage 3a; E11.22 Type 2 diabetes mellitus with diabetic chronic kidney disease; I25.10 Atherosclerotic heart disease of native coronary artery without angina pectoris; E87.6 Hypokalemia; S01.112A Laceration without foreign body of left eyelid and periocular area, initial encounter; S50.12XA Contusion of left forearm, initial encounter; F17.210 Nicotine dependence, cigarettes, uncomplicated; W01.0XXA Fall on same level from slipping, tripping and stumbling without subsequent striking against object, initial encounter; D49.6 Neoplasm of unspecified behavior of brain; I25.5 Ischemic cardiomyopathy; S05.12XA Contusion of eyeball and orbital tissues, left eye, initial encounter; Z88.1 Allergy status to other antibiotic agents; Z91.038 Other insect allergy status; Z91.018 Allergy to other foods; Z79.82 Long term (current) use of aspirin; I25.2 Old myocardial infarction; Z79.84 Long term (current) use of oral hypoglycemic drugs; Z79.899 Other long term (current) drug therapy; Z79.2 Long term (current) use of antibiotics; Z98.1 Arthrodesis status; Z90.710 Acquired absence of both cervix and uterus; Z90.721 Acquired absence of ovaries, unilateral; Z90.49 Acquired absence of other specified parts of digestive tract; Z98.890 Other specified postprocedural states; Z86.19 Personal history of other infectious and parasitic diseases; Z92.21 Personal history of antineoplastic chemotherapy
CPT/HCPCS: 36415; 51701; 70450; 71045; 73060; 80053; 80061; 81001; 83735; 83880; 84484; 85025; 85520; 85610; 85730; 93005; 93010; 96374-59; 97110; 97161; 97165; 97530; 99285-25; A9270; J3475; J3480; J7030